=== PATIENT | male | born 1970 | race Caucasian/White ===

== ENCOUNTER 2023-10-31 18:47 | Inpatient (IN) | payer OTHER, SELFPAY ==
[2023-10-31] VITALS (14 sets, daily range): BP systolic 117–142; BP diastolic 78–89; BMI 21.2; BMI 17.3
[2023-10-31 13:31] LABS: % Basophils 0.4 % (0-2); % Eosinophils 0.2 % (0-6); % Immature Granulocytes 1.6 % (0-0.5); % Lymphocytes 9.5 % (20.5-51.1); % Neutrophils 79.3 % (42.2-75.2); Absolute Immature Granulocytes 0.1 10^3/uL (0-0.05); Absolute Lymphocytes 0.8 10^3/uL (1.2-3.4); Absolute Monocytes 0.8 10^3/uL (0.1-0.6); Absolute Neutrophils 6.6 10^3/uL (1.4-6.5); Hemoglobin 7.3 g/dL (13.0-18.0); Mean Corp Hgb Conc. 35.4 g/dL (33.0-37.0); Mean Corpuscular Hgb 34.3 pg (27.0-31.0); Mean Corpuscular Volume 96.7 fL (80.0-94.0); Mean Platelet Volume 9.4 fL (7.4-10.4); Nucleated Red Blood Cells % 0 % (-); Platelet Count 116 10^3/uL (130-400); Red Blood Cell Count 2.13 10^6/uL (4.70-6.10); Red Cell Dist. Width 11.6 % (11.5-14.5); White Blood Cell Count 8.3 10^3/uL (4.8-10.8)
[2023-10-31 13:38] LABS: Hematocrit 20.6 % (39.0-52.0)
[2023-10-31 13:59] LABS: ALT (SGPT) 36 U/L (0-50); AST (SGOT) 193 U/L (17-59); Albumin 4.5 g/dl (3.5-5.0); Alkaline Phosphatase 113 U/L (38-126); Blood Urea Nitrogen 55 mg/dl (9-20); Calcium 8.4 mg/dl (8.4-10.2); Carbon Dioxide 16 mmol/L (22-30); Chloride 97 mmol/L (98-107); Glucose 127 mg/dl (70-99); Lipase 495 U/L (23-300); Potassium 4.2 mmol/L (3.5-5.1); Sodium 132 mmol/L (135-145); Total Bilirubin 0.8 mg/dl (0.2-1.3); Total Protein 7.2 g/dl (6.3-8.2); eGFR 38.93
--- NOTE | 2023-10-31 16:52 | ED.GENMED ---
History of Present Illness
General
Chief Complaint: Weakness
Time Seen by Provider: 10/31/23 16:51
Travel History
Have you had any contact with someone who has COVID-19?: No
Do you have any symptoms of coronavirus? Fever > 100 degrees, chills, cough, shortness of breath, sore throat, loss of taste or smell, muscle aches, or headache?: No
History of Present Illness
History of Present Illness:
HPI: The patient has had poor p.o. intake since dental procedure 5 days ago. There was also concern for alcohol withdrawal. He was drank alcohol yesterday morning. He is a daily drinker. After the dental procedure, he had been having increased
amount of oral bleeding but none currently. He also tells me that about a year and a half ago he was told to start taking iron because his hemoglobin level was low. He has not been taking any iron now.
EXAM:
GENERAL: The patient is somewhat ill in appearance
HEENT: Dry oral mucosa
CARDIOVASCULAR: No murmurs, tachycardic heart rate, regular rhythm, No chest wall tenderness
PULMONARY: No respiratory distress, breath sounds are clear and equal
ABDOMEN: Soft with no peritoneal signs, no tenderness
NEUROLOGIC: Good strength all extremities, no coordination deficits, asterixis noted
PSYCHIATRIC: Appropriate mental status, normal insight and judgement, CIWA score equals 12
EXTREMITIES: Nontender, no edema, moves all extremities equally
SKIN: No rash, no lesions
TIME OF INITIAL ENCOUNTER: 5 PM
NUMBER AND COMPLEXITY OF PROBLEMS ADDRESSED AT THE ENCOUNTER
� Chronic conditions affecting care: Alcoholism, high blood pressure, hyperlipidemia, GERD, testicular cancer
� Acute Exacerbation and/or Progression of Chronic Illness: This is an acute problem
� Differential Diagnosis includes: Blood loss anemia, B12/folate deficiency, upper GI bleed, alcohol withdrawal
AMOUNT AND/OR COMPLEXITY OF DATA TO BE REVIEWED AND ANALYZED
� I performed an independent evaluation of and my interpretation is:
EKG: Sinus 112, leftward axis, nonspecific ST abnormality, no old to compare
CT:
X-rays:
Laboratory Studies: Hemoglobin is only 7.3, bicarb 16, BUN 55, creatinine 2.0
Other:
� Review of other/old records: I reviewed old records, the hemoglobin in 2009 was 13.0, renal function in the past was normal
� Clinical information was obtained by an independent historian: I spoke to the at bedside
� Prescriptions/Medications Considered but not given:
� Further testing considered but not performed:
RISK OF COMPLICATIONS AND/OR MORBIDITY OR MORTALITY OF PATIENT MANAGEMENT
� Social determinants of health affecting care: Lives at home, drinks daily until yesterday morning
� Discussion with other providers:
� Escalation of care including admission/observation vs risk of discharge considered: The patient is an alcoholic and currently has a CIWA score of 12�Ativan was ordered. There is also concern for dramatic drop in his
hemoglobin�will give blood. I have also ordered Protonix. He has briskly heme positive on Hemoccult testing. He does report some intermittent shortness of breath with exertion which I suspect is related to the blood loss anemia.
Phy Exam
Physical Exam
Physical Exam:
See HPI
Course
Orders/Labs/Results
Orders:
Orders
10/31/23 13:12
Electrocardiogram (*1) Urgent
Reason for Study: Tachycardia
EKG- Treatment ONCE
10/31/23 13:24
Complete Blood Count/With Diff Urgent
Comprehensive Metabolic Panel Urgent
Ferritin Urgent
Comment: ADD ON
Folate Urgent
Comment: ADD ON
Iron Urgent
Comment: ADD ON
Lipase Urgent
Total Iron Binding Urgent
Comment: ADD ON
Vitamin B12 Urgent
Comment: ADD ON
10/31/23 16:53
0.9% Sodium Chloride 1000 ml [Nss] 1,000 ml IV BOLUS
Lorazepam [Ativan] 2 mg IV NOW STA
Pantoprazole [Protonix IV] 80 mg IV NOW STA
10/31/23 16:59
Type+Screen Urgent
10/31/23 17:04
Add On- LAB Urgent
Tests Added?: iron panel, ferritin, b12, folate
10/31/23 17:06
* Blood Bank Products Urgent
Blood Bank Products: *Packed RBC Leuko(PRBC's)
Quantity: 2
Transfuse Today: Yes
Reason: Anemia
10/31/23 17:16
Prothrombin Time Urgent
Abnormal Lab Results
10/31/23
13:24
RBC 2.13 L 10^6/uL
(4.70-6.10)
Hgb 7.3 L g/dL
(13.0-18.0)
Hct 20.6 L* %
(39.0-52.0)
MCV 96.7 H fL
(80.0-94.0)
MCH 34.3 H pg
(27.0-31.0)
Plt Count 116 L 10^3/uL
(130-400)
Abs Immat Gran (auto) 0.1 H 10^3/uL
(0-0.05)
Absolute Neuts (auto) 6.6 H 10^3/uL
(1.4-6.5)
Absolute Lymphs (auto) 0.8 L 10^3/uL
(1.2-3.4)
Absolute Monos (auto) 0.8 H 10^3/uL
(0.1-0.6)
Immature Gran % 1.6 H %
(0-0.5)
Neutrophils % 79.3 H %
(42.2-75.2)
Lymphocytes % 9.5 L %
(20.5-51.1)
Sodium 132 L mmol/L
(135-145)
Chloride 97 L mmol/L
(98-107)
Carbon Dioxide 16 L mmol/L
(22-30)
BUN 55 H mg/dl
(9-20)
Creatinine 2.0 H mg/dL
(0.7-1.3)
Glucose 127 H mg/dl
(70-99)
AST 193 H U/L
(17-59)
Lipase 495 H U/L
(23-300)
10/31/23 13:24
10/31/23 13:24
Vital Signs
Initial and Last Documented VS:
Initial Vital Signs
Temp Pulse Resp BP Pulse Ox
98.1 F 125 18 117/81 100
10/31/23 13:08 10/31/23 13:08 10/31/23 13:08 10/31/23 13:08 10/31/23 13:08
Last Documented Vital Signs
Temp Pulse Resp BP Pulse Ox
98.1 F 115 21 133/88 100
10/31/23 13:08 10/31/23 16:51 10/31/23 16:51 10/31/23 16:53 10/31/23 16:51
*Critical Care Note
Total Time (30-74mins, 75-104mins- exclusive of procedures): Not Applicable
ED Attending Note
-
Portions of this chart may have been created with voice recognition software.� Occasional wrong word or��sound alike� substitutions may have occurred due to the inherent limitations of voice recognition software.
Discharge Plan
Departure
Patient Disposition: Admit
Date of Disposition: 10/31/23
Time of Disposition: 17:05
Presentation/result/management discussed w/ accepting MD/DO: Hospitalist
Discharge Problem:
Symptomatic anemia
Prescriptions:
No Action
amlodipine 5 mg Tablet
5 mg PO QPM
Patient Comments:
10/31/2023, last filled in February 2023 for 30-day supply per pharmacy.
simvastatin 40 mg Tablet
40 mg PO QPM
Patient Comments:
10/31/2023, last filled in March 2023 for 30-day supply per pharmacy.
pantoprazole 40 mg Tablet,Delayed Release (Dr/Ec)
40 mg PO QPM
Patient Comments:
10/31/2023, last filled in March 2023 for 30-day supply per pharmacy.
losartan 100 mg Tablet
100 mg PO QPM
Patient Comments:
10/31/2023, last filled in April 2023 for a 30-day supply per pharmacy.
Interventions
Interventions:
*Risk Screen - Suicide Last Done: 10/31/23 13:08
*General Assessment Last Done: 10/31/23 13:08
*Neglect/Abuse Screening Last Done: 10/31/23 13:08
*ED COVID-19 Vaccine History Last Done: 10/31/23 13:08
ED- Cardiac Assessment Last Done: 10/31/23 16:54
ED- Neurological Assessment Last Done: 10/31/23 17:28
Discharge Date and Time
Print Language: QATARI
[2023-10-31] MEDS: PROTONIX IV 80 MG IV (17:00)
[2023-10-31] MEDS: NSS 1000 IV (17:00)
[2023-10-31] MEDS: ATIVAN 2 MG IV (17:06)
--- NOTE | 2023-10-31 17:34 | PHANOTE ---
10/31/2023, med rec tech, spoke to pt. to obtain their med. history; per pt., he is taking Pantoprazole 40 mg QPM, Amlodipine 5 mg QPM, Simvastatin 40 mg QPM, and Losartan 100 mg QPM; however, per pharmacy, he has not filled them since last year for
30-day supplies each. Could not confirm with ECW.
[2023-10-31 17:51] LABS: Iron 123 ug/dl (49-181)
--- NOTE | 2023-10-31 17:59 | HPS.HSE ---
Family Physician
-
Family Physician: Josselin Fung
Chief Complaint
-
Weakness
History of Present Illness
Patient is a 53 y/o male with a past medical history of hypertension, hyperlipidemia, and alcohol use disorder who presents for dental bleeding, anorexia, and progressive lethargy with dyspnea on exertion for about 1 week. He reports that he got a
right-sided dental cleaning last week and has had continuous bleeding with clots since that time. He admits to 'constantly spitting out clots' but states that he is probably swallowing some blood as well. He is not on any blood-thinning medications.
He denies any bleeding since arrival to the emergency department. His family member reports a similar episode of dental bleeding in the past. Additionally, he drinks about 7 drinks of liquor daily and stopped drinking yesterday morning. Since that
time, he has been experiencing shakiness and vomited 1 time yesterday. He admits to previous episodes of alcohol withdrawal but denies history of seizures.
Medical History
Past Medical History
Past Medical History: Reports Other
Additional Past Medical History:
Essential Hypertension
Hyperlipidemia
Alcohol Use Disorder
GERD
Testicular Cancer
Past Surgical History: Reports Other
Additional Past Surgical History:
Orchiectomy
Social History
Tobacco: Non-smoker
Alcohol: Daily (7 drinks of vodka/bourbon daily )
Family History
Family History: Not pertinent
Allergies / Home Medications
Allergies reflects when Allergies were last updated in [facility].
Home Medications with original date entered in [facility]
Allergy/Medication List:
Allergies
Allergy/AdvReac Type Severity Reaction Status Date / Time
No Known Allergies Allergy Unverified 10/31/23 13:12
Home Medications
amlodipine 5 mg tablet 5 mg PO QPM 10/31/23
losartan 100 mg tablet 100 mg PO QPM 10/31/23
pantoprazole 40 mg tablet,delayed release 40 mg PO QPM 10/31/23
simvastatin 40 mg tablet 40 mg PO QPM 10/31/23
Review of Systems
-
A 12 point ROS was completed and negative except as noted: Yes
Constitutional: Denies Fever or Chills
Respiratory: Denies Cough or Trouble Breathing
Cardiac: Denies Chest Pain or Syncope
Abdomen/GI: Reports Anorexia
Physical Exam
Vital Signs
Vital Signs
Temp Pulse Resp BP Pulse Ox
98.1 F 115 21 133/88 100
10/31/23 13:08 10/31/23 16:51 10/31/23 16:51 10/31/23 16:53 10/31/23 16:51
Physical Exam
General: Comfortable and Conversant
HEENT: Anicteric, Moist mucous membranes and Other (Blood pooling along lower right posterior molars)
Respiratory: Clear and Non Labored Respirations
Cardiac: S1/S2, Regular Rhythm and Tachycardia
GI: Soft, Non Tender and Other (Mild hepatomegaly )
Rectal: Hem Positive (Per ED Provider)
Musculoskeletal: No Clubbing, No Cyanosis and No Edema
Skin: Warm and Dry
Neuro: Awake, Alert, Oriented, Nonfocal/grossly intact and Tremors (Slightly)
Laboratory Results
-
10/31/23 13:24
10/31/23 13:24
Laboratory Results
Total Bilirubin 0.8 mg/dl (0.2-1.3) 10/31/23 13:24
AST 193 U/L (17-59) H 10/31/23 13:24
ALT 36 U/L (0-50) 10/31/23 13:24
Alkaline Phosphatase 113 U/L (38-126) 10/31/23 13:24
Lipase 495 U/L (23-300) H 10/31/23 13:24
Data Reviewed
-
Lab Data: Labs Reviewed by me
Impression/Plan
-
Symptomatic Acute Blood Loss Anemia
-Transfuse 2 units PRBC
-Check iron studies, vitamin b12 and folic acid level
Heme-Positive Stool, suspect secondary to Gingival Bleeding following dental procedure
-Consult GI
-Continue Protonix
Acute Kidney Injury
-Continue IVFs
-Recheck creatinine in AM
Thrombocytopenia, likely related to alcohol
-Continue to monitor platelet count
Essential Hypertension
-Unclear if patient is taking medication as prescribed
-Hold losartan in setting of GATO
-Continue amlodipine with hold parameters
-Monitor blood pressure closely
Hyperlipidemia
-Hold statin
GERD
-Continue Protonix
DVT proph: SCDs
Code Status: Full Code
[2023-10-31 18:01] LABS: Percent Saturation 54 % (20-50); Total Iron Binding Capacity 224 ug/dl (261-462)
--- NOTE | 2023-10-31 18:53 | W.PN.UPDATE ---
Update Note
Progress Note Update
This note serves as an addendum to the H&P by Marjorie Sage PA-C on October 31, 2023.
53 y/o male with a past medical history of hypertension, hyperlipidemia, bleeding in mouth after dental work and alcohol use disorder (with history of driving while intoxicated) who presents for dental bleeding, anorexia, and progressive lethargy
with dyspnea on exertion for about 1 week. He reported that he got a right-sided dental cleaning last week and has had continuous bleeding with clots since that time -- he has a history of a similar episode after dental work, without any clear
etiology identified. He admits to 'constantly spitting out clots' but states that he is probably swallowing some blood as well. He is not on any blood-thinning medications. He denies any bleeding since arrival to the emergency department.
Additionally, he drinks about 7 drinks of liquor daily and stopped drinking yesterday morning. Since that time, he has been experiencing shakiness and vomited 1 time yesterday. He admits to previous episodes of alcohol withdrawal but denies history
of seizures. Patient also reported Melena this morning.
Vital Signs
Afebrile
Tachycardic
BP good/elevated
RR okay
Oxygen saturations are good on room air
Physical Exam
General: Comfortable and Conversant
HEENT: Moist mucous membranes and Other (Blood pooling along lower right posterior molars)
Respiratory: Clear to Auscultation Bilaterally
Cardiac: S1/S2, Regular Rhythm. Tachycardia.
GI: Soft, Non Tender and Other (Mild hepatomegaly). Positive bowel sounds.
Rectal: Hem Positive (Per ED Provider)
Musculoskeletal: No Cyanosis and No Edema
Skin: Warm and Dry
Neuro: Awake, Alert, Oriented x3, Nonfocal/grossly intact and Tremors (Slightly)
Assessment/Plan
Symptomatic Acute Blood Loss Anemia
Melena
-Transfuse 2 units PRBC as ordered by ER
-Check iron studies, vitamin b12 and folic acid level
-Bleeding contributed from oral bleeding
-GI consult
Heme-Positive Stool, suspect secondary to Gingival Bleeding following dental procedure
-Consult GI
-Continue Protonix
Acute Kidney Injury
-Continue IVFs
-Recheck creatinine in AM
Thrombocytopenia, likely related to alcohol
-Continue to monitor platelet count
Alcohol Use Disorder
-Continue monitoring with MSAS protocol and can use PRN Ativan as needed
-Phenobarb taper can be considered if needed
Essential Hypertension
-Unclear if patient is taking medication as prescribed
-Hold losartan in setting of GATO
-Continue amlodipine with hold parameters
-Monitor blood pressure closely
Hyperlipidemia
-Hold statin
GERD
-Continue Protonix
DVT prophylaxis: SCDs
Code Status: Full Code
[2023-10-31 19:19] LABS: Folate 3.9 ng/ml (2.76-20); Vitamin B12 765 pg/ml (239-931)
--- NOTE | 2023-10-31 22:15 | PTCARENOTE ---
Pt received from ED to 4417-1. Pt oriented to room and call elizalde.
[2023-10-31] MEDS: NORVASC 5 MG PO (23:10)
[2023-11-01] VITALS (10 sets, daily range): BP systolic 111–141; BP diastolic 83–93; BMI 18.9
[2023-11-01] MEDS: THIAMINE INJECTION 200 MG IV ×3 (01:13→22:10)
[2023-11-01] MEDS: NSS 1000 IV ×2 (01:14→18:29)
--- NOTE | 2023-11-01 07:48 | W.PN.HOSP.TC ---
Today's Communication/Plan
-
Alcohol withdrawal monitoring
NPO for EGD
Monitor telemetry
PPI
Replace electrolytes
Assessment / Plan
Assessment / Plan
Physical Exam
General: Comfortable and Conversant
HEENT: Moist mucous membranes and Other (Blood pooling along lower right posterior molars)
Respiratory: Clear to Auscultation Bilaterally
Cardiac: S1/S2, Regular Rhythm. Tachycardia.
GI: Soft, Non Tender and Other (Mild hepatomegaly). Positive bowel sounds.
Rectal: Heme-Positive (Per ED Provider)
Musculoskeletal: No Cyanosis and No Edema
Skin: Warm and Dry
Neuro: Awake, Alert, Oriented x3, Nonfocal/grossly intact and Tremors (Slightly)
Assessment/Plan
Symptomatic Acute Blood Loss Anemia
Melena
-Transfused 2 units PRBC on 10/31/23 evening
-Iron studies unremarkable
-Vitamin b12 and folic acid levels are okay
-Bleeding contributed from oral bleeding
-GI consulted, recommendations appreciated
-NPO for EGD
-Abdominal ultrasound to check for ascites
SVT on residential monitor
-Possibly from alcohol withdrawal, anemia, volume depletion, acute kidney injury
-Cardiology consulted, recommendations appreciated
Heme-Positive Stool, suspect secondary to Gingival Bleeding following dental procedure
-Consulted GI, recommendations appreciated
-Continue Protonix Drip
Acute Kidney Injury vs. CKD
Hypomagnesemia
Hypocalcemia
-Continue IVFs
-Blood transfusion may have contributed to the above electrolyte imbalances
-REeplacing with IV magnesium
-Consulted nephrology, recommendations appreciated
Thrombocytopenia, likely related to alcohol
-Continue to monitor platelet count
Alcohol Use Disorder
-Continue monitoring with MSAS protocol and can use PRN Ativan as needed
-Phenobarb taper can be considered if needed
-Thiamine and Folic Acid
Essential Hypertension
-Unclear if patient is taking medication as prescribed
-Hold losartan in setting of GATO
-Continue amlodipine with hold parameters
-Monitor blood pressure closely
Hyperlipidemia
-Hold statin
GERD
-Continue Protonix
DVT prophylaxis: SCDs
Code Status: Full Code
Anticipated Discharge: > 48 hours
Subjective/Interval History
-
Date of Service: November 01, 2023
Patient was seen and examined. He reported no bowel movements overnight, and had no bleeding in his mouth overnight.
Objective Data
-
Labs:
Laboratory Results
10/31/23 11/01/23
19:53 07:23
WBC Pending
Hgb Pending
Hct Pending
Plt Count Pending
PT 14.0
INR 1.10
Sodium Pending
Potassium Pending
Chloride Pending
Carbon Dioxide Pending
BUN Pending
Creatinine Pending
Glucose Pending
Calcium Pending
Vital Signs:
Vital Signs
Temp Pulse Resp BP Pulse Ox
99 F 122 18 136/93 99
11/01/23 04:45 11/01/23 04:45 11/01/23 04:45 11/01/23 04:45 11/01/23 04:45
I&O
10/31/23 11/01/23 11/02/23
06:59 06:59 06:59
Intake Total 900 / 900
Output Total 575 / 575
Balance 325 / 325
[2023-11-01 07:49] LABS: Mean Corpuscular Hgb 32.4 pg (27.0-31.0); Mean Corpuscular Volume 89.9 fL (80.0-94.0); Mean Platelet Volume 10.2 fL (7.4-10.4); Platelet Count 105 10^3/uL (130-400); Red Blood Cell Count 2.78 10^6/uL (4.70-6.10); Red Cell Dist. Width 14.3 % (11.5-14.5)
--- NOTE | 2023-11-01 08:16 | CON.GI ---
Addendum entered and electronically signed by Sheyla Pardo DO 11/01/23 10:32:
53 y.o. male w/ history of HTN, HLD, GERD, testicular ca in 1999, alcohol use disorder admitted with weakness, SOB and reports of melenic stool x1 week. He reports having a dental procedure last week, after which he started experiencing melena.
Initial hemoglobin of 7.3 with improvement to 9.0 following blood transfusion. BUN initially 55 with improvement to 38, creatinine was elevated to 2.0 with improvement to 1.5. Additionally, has evidence of thrombocytopenia, 116 --> 105. INR is
normal. He also has mild hyponatremia, Na 133. He has an isolated elevation in AST to 193, c/w EtOH. He reports drinking 7 alcoholic beverages daily-- either vodka or bourban for many years. Denies NSAID use or blood thinners. He is mildly
tachycardic but otherwise hemodynamically stable. Admits to withdrawal symptoms but denies history of seizures. Noted to be in SVT following admission, cardiology consult pending.
Given active EtoH, elevated BUN, significant anemia with melenic stool and thrombocytopenia, c/f upper GI bleed and liver disease.
Plan:
-Keep NPO, cardiology consult pending. Plan for EGD following clearance
-keep on PPI gtt, can hold on Octreotide and SBP prophylaxis pending workup, no appreciable ascites on PE
-Check abdominal US w/ dopplers, if evidence of ascites, needs IR for paracentesis and ascitic fluid studies
-check hepatitis serologies, acetaminophen level, salicylate level, UDS, ceruloplasmin
-DF = 0.8, no role for steroids
-replete electrolytes, low mag
-start thiamine and folic acid
-check phos
-elevated lipase without abdominal pain, does not meet criteria for acute pancreatitis, though, certainly has RFs
Addendum entered and electronically signed by Mellisa Bridges NP 11/01/23 09:05:
Lipase is also mildly elevated but he denies abdominal pain. Await US.
Original Note:
Consultation
-
Date/Time Consultation Requested: 11/01/23 @ 07:33
Date/Time Consultation Performed: 11/01/23 @ 08:30
Requesting Provider: Dr. Rosas
Performing Provider: FRANKI Conde; Dr. Sheyla Pardo
Reason for Consultation: Melena, got blood transfusions
Medical History
Chief Complaint / HPI
Chief Complaint: weakness
History of Present Illness:
The patient is a 53-year-old male with a past medical history significant for hypertension, GERD, hiatal hernia, hyperlipidemia, ETOH abuse, testicular cancer (1999), who presented to the emergency room with complaints of weakness and shortness of
breath. We are being asked to evaluate for evaluation of melena. The pt reports having a dental procedure about a week ago. He notes significant bleeding from his mouth post-procedure which also happened a few years ago after a deep cleaning. He
notes he likely was swallowing blood and was spitting up clots. He admits his stools turned black shortly after his procedure which has been ongoing for a week. He denies any hematemesis or hematochezia. He will get occasional rectal bleeding from
hemorrhoids. He has had progressive fatigue and shortness of breath as well. He admits to occasional nausea with one episode of non-bloody emesis on Tuesday, but currently denies. He admits he has had reduced PO intake over the past week as well. He
otherwise denies any abdominal pain, abdominal swelling, LE edema, chest pain, dysphagia, odynophagia, fevers, chills, confusion, or yellowing of the skin or eyes. He reports a history of 'low blood counts' several years ago and was told to take
oral iron but he did not continue this. He did not have any further work-up of this. He denies hx of liver cirrhosis, hepatitis, or IV drug use. He drinks 7 drinks of vodka or bourbon daily which he done for many years. He admits to history of DUI
but has never been to formal alcohol rehab. He has gone through mild alcohol withdrawal in the past without seizures. His last drink was Tuesday morning. He denies use of blood thinners or NSAID's. He denies any family hx of GI cancers or disorders.
He has never had a colonoscopy but did a 'box test' about 2-3 years ago which was negative. Last EGD done in 2013 which was normal. Routine labs on admission showed a hemoglobin of 7.3, WBC 8.3, MCV 96.7, platelets 116,000, INR 1.1, sodium 132,
potassium 4.2, total CO2 16, BUN 55, creatinine 2.0, serum iron 123, there is saturation 54%, ferritin 239, lipase 495, total bilirubin 0.8, AST 193, ALT 36, alk phos 113, vitamin B12 765, folate 3.9. He recieved Protonix 80 mg IV, started on
alcohol withdrawal protocol, and admitted for further evaluation by GI and cardiology. It is noted the patient had a run of SVT this morning. He did receive 2 units of packed red blood cells with improvement of his hemoglobin to 9.0. Noted with
mild tachycardia otherwise hemodynamically stable.
Past Medical History
Past Medical History: Cancer (Testicular cancer), GERD, HTN, Hypercholesterolemia and Other (EtOH abuse, hiatal hernia)
Past Surgical History: Urological (Orchiectomy) and Other (finger surgery)
Social History
Tobacco: Non-Smoker
Alcohol: Daily (7 drinks of vodka or bourbon daily)
Drug: None
Family History
Family History: Reviewed & Not Pertinent
Allergies / Home Medications
Allergy/AdvReac Type Severity Reaction Status Date / Time
No Known Allergies Allergy Unverified 10/31/23 13:12
�Medication �Instructions �Recorded
amlodipine 5 mg tablet 5 mg PO QPM Blood Pressure 10/31/23
losartan 100 mg tablet 100 mg PO QPM Blood Pressure 10/31/23
pantoprazole 40 mg tablet,delayed 40 mg PO QPM Gastrointestinal Issue 10/31/23
release
simvastatin 40 mg tablet 40 mg PO QPM High Cholesterol 10/31/23
Review of Systems
-
History Source: Patient
Constitutional: Reports Fatigue
EENT: Reports Other (gum bleeding)
Respiratory: Reports Trouble Breathing
Cardiac: Reports No Symptoms
Abdomen/GI: Reports Black Stools
: Reports No Symptoms
Musculoskeletal: Reports No Symptoms
Skin: Reports No Symptoms
Neurological: Reports Weakness (generalized)
Vital Signs
Temp Pulse Resp BP Pulse Ox
99.2 F 102 16 131/88 96
11/01/23 08:02 11/01/23 08:02 11/01/23 08:02 11/01/23 08:02 11/01/23 08:02
Physical Exam
Exam
General: Well Developed, Well Nourished and No Apparent Distress
HEENT: Normocephalic, Anicteric and Atraumatic
Respiratory: Clear
Cardiac: S1/S2 and Regular Rhythm
Breast: Deferred by me
GI: Soft, Non Tender, Non Distended and Normal Bowel Sounds
Rectal: Other (black, briskly heme positive per ER)
Musculoskeletal: No Edema and Other (mild UE tremors bilaterally, no asterixis)
Skin: Warm and Dry
Neuro: Awake, Alert and Oriented
Psych: Calm
Results
WBC 7.0 10^3/uL (4.8-10.8) 11/01/23 07:23
Hgb 9.0 g/dL (13.0-18.0) L D 11/01/23 07:23
Hct 25.0 % (39.0-52.0) L 11/01/23 07:23
MCV 89.9 fL (80.0-94.0) 11/01/23 07:23
Plt Count 105 10^3/uL (130-400) L 11/01/23 07:23
Absolute Neuts (auto) 6.6 10^3/uL (1.4-6.5) H 10/31/23 13:24
PT 14.0 Sec (11.4-14.6) 10/31/23 19:53
INR 1.10 10/31/23 19:53
Sodium 132 mmol/L (135-145) L 10/31/23 13:24
Potassium 4.2 mmol/L (3.5-5.1) 10/31/23 13:24
Chloride 97 mmol/L (98-107) L 10/31/23 13:24
Carbon Dioxide 16 mmol/L (22-30) L 10/31/23 13:24
BUN 55 mg/dl (9-20) H 10/31/23 13:24
Creatinine 2.0 mg/dL (0.7-1.3) H 10/31/23 13:24
Calcium 8.4 mg/dl (8.4-10.2) 10/31/23 13:24
Total Bilirubin 0.8 mg/dl (0.2-1.3) 10/31/23 13:24
AST 193 U/L (17-59) H 10/31/23 13:24
ALT 36 U/L (0-50) 10/31/23 13:24
Alkaline Phosphatase 113 U/L (38-126) 10/31/23 13:24
Lipase 495 U/L (23-300) H 10/31/23 13:24
Diagnostic Image Results:
none
Prior GI Procedures:
EGD: 06/24/2014, Dr. Eng: Normal esophagus. Biopsied. Normal stomach. Biopsied. Normal 3rd part of the duodenum. Biopsied. GERD, diagnosis based on history. UGI suggested stricture none found. Path showing chronic gastritis, esophageal
inflammation, negative for celiac, cadena's esophagus, H pylori
Colonoscopy: none
Assessment / Plan
-
The patient is a 53-year-old male with a past medical history significant for hypertension, GERD, hiatal hernia, hyperlipidemia, daily ETOH abuse, testicular cancer s/p surgery (1999), who presented to the emergency room with complaints of weakness
and shortness of breath and melena found to have significant macrocytic anemia with normal iron studies. With daily alcohol use, thrombocytopenia, and significant anemia there is concern for possible underlying cirrhosis although appears he would be
clinically compensated. No ongoing signs of bleeding to suggest active esophageal variceal bleeding. He reports recent dental work and significant bleeding from this which has stopped. He reports hx of anemia but did not have underlying work-up. No
prior colonoscopy. EGD 10 years ago which was normal. No NSAID's or thinners.
Problem list:
-melena, heme +
-macrocytic anemia
-recent dental procedure with bleeding post-procedure
-daily ETOH abuse
-GATO
-elevated AST
-thrombocytopenia
-SVT
Other pertinent medical hx:
-HTN
-HLD
-GERD
-hiatal hernia
-testicular cancer with surgery(1999)
Recommendations:
-Etiology of melena possibly 2/2 bleeding from dental procedure v UGI bleed (PUD v AVM v erosive gastritis v other) v other. With hx of alcohol abuse to consider portal hypertensive gastropathy v EV in differential although with no known hx of
cirrhosis and without signs of active bleeding.
-Trend H/H and transfuse to keep hgb >7
-Monitor stool output
-Consider EGD today v tomorrow as discussed with Dr. Pardo. Await cardiology eval with SVT this am
-Will make NPO at this time pending above. The pt is agreeable to this plan.
-Check US abdomen with dopplers to evaluate for cirrhosis
-Trend LFT's
-Advised to abstain from alcohol
-Avoid blood thinning medications
-Avoid NSAID's
-Follow platelets
-Would change PPI to IV BID
-Will follow
-
-
Thank you for consultation and allowing me to participate in the patient's care. Please call the composition weatherboard applier GI physician during the after hours with any questions or concerns.
[2023-11-01 08:28] LABS: Blood Urea Nitrogen 38 mg/dl (9-20); Calcium 7.8 mg/dl (8.4-10.2); Carbon Dioxide 20 mmol/L (22-30); Chloride 101 mmol/L (98-107); Estimated Creatinine Clearance 43 ml/min; Glucose 102 mg/dl (70-99); Magnesium 0.6 mg/dl (1.6-2.3); Potassium 3.7 mmol/L (3.5-5.1); Sodium 133 mmol/L (135-145); eGFR 54.98
[2023-11-01] MEDS: MAGNESIUM SULFATE 50 IV (10:34)
[2023-11-01] MEDS: PROTONIX 100 IV (10:34)
[2023-11-01] MEDS: FOLVITE 1 MG PO (10:34)
--- NOTE | 2023-11-01 11:13 | CON.CAR ---
Addendum entered and electronically signed by Chalino Mir MD 11/01/23 16:02:
53-year-old man with hypertension, hyperlipidemia, GERD, and EtOH use disorder admitted with dyspnea, anorexia, lethargy, and hemoglobin 7.3. We are asked to comment regarding sinus tachycardia/possible SVT.
PMH: Hypertension, hyperlipidemia, alcohol use disorder, GERD, history of testicular cancer, and anemia
PSH: Orchiectomy, hand surgery
SH: Non-smoker, 7 vodka/bourbons daily, , not employed,
FH: Premature CAD
Allergies none
Outpatient medications: Amlodipine, losartan, pantoprazole and simvastatin
ROS negative except as above
134/92, pulse 106, respirate 16, afebrile
Seen in PACU after EGD, appears chronically ill, no acute distress, head neck exam unremarkable, lungs are clear cardiac exam with very soft systolic murmur at apex JVD okay no bruits, abdomen mildly distended, extremities without edema pulses
intact, neuro nonfocal
Initial hemoglobin 7.3, 9.0 on repeat, platelets 105, sodium 133, BUN and creatinine 38 and 1.5, mag is 0.6, creatinine had been 2
ECG sinus tachycardia, nonspecific ST and T changes, QT top normal
Telemetry sinus tach, periods of possible atrial tachycardia/SVT based on review of histograms, difficult to be certain without twelve-lead ECG
Impression:
Presented 10/31/2023 with weakness, lethargy, anorexia
Gingival bleeding after dental procedure, thrombocytopenia
Dyspnea on exertion
Symptomatic Acute Blood Loss Anemia
Melena with heme + stool
Acute Kidney Injury
Thrombocytopenia, likely related to alcohol abuse
Essential Hypertension
Hyperlipidemia
Alcohol Use Disorder (drinks 7 liquor drinks daily)
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
GERD
Mitral valve prolapse?
Testicular Cancer s/p Orchiectomy
Plan:
He presents with blood loss anemia in the setting of alcohol use disorder and sinus tachycardia. On telemetry he may be having episodes of SVT or atrial tach, though it is also conceivable he has sinus tachycardia.
Nothing at present that seems like atrial fibrillation.
Suspect all will improve with transfusion, appropriate management of alcohol withdrawal, etc.
Suspect LV function will be normal but await echo. 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
Await echocardiogram. In the meantime, I have added metoprolol ER 25 mg twice daily. Continue amlodipine. Losartan on hold given GATO, eventual restart.
We will continue to follow.
Original Note:
Consultation
Consultation Request
Date/Time Consultation Requested: 11/01/2023
Date/Time Consultation Performed: 11/01/2023
Requesting Provider: Alison Sheldon
Performing Provider: Barbara Zepeda PA-C for Dr. WILL Mir
Reason for Consultation: Tachycardia
Medical History
-
History of Present Illness:
53 y/o male with a past medical history of hypertension, hyperlipidemia, GERD and alcohol use disorder who presented 10/31/2023 for dental bleeding, anorexia, and progressive lethargy with dyspnea on exertion for about 1 week. Patient admits he had
dental procedure last week and has had continuous gingival bleeding with clots since that time. He had a similar episode in the past. He reports progressively worsening dyspnea on exertion and elevated heart rate with activity over the last
several days. Admits to history of alcohol abuse with drinking 7 drinks of liquor primarily vodka and bourbon a day for years. Patient stopped drinking yesterday morning. Since that time he has not been experiencing shakiness as well as nausea
and vomiting. Initial hemoglobin of 7.3 with improvement to 9.0 following blood transfusion w/ 2 upRBCs. BUN initially 55 with improvement to 38, creatinine was elevated to 2.0 with improvement to 1.5. He has an isolated elevation in AST to 193,
ALT 36 ECG demonstrated sinus tachycardia at 111 bpm.
He reports he saw cardiology 1 time in the past after he was told he may have mitral valve prolapse. He thinks he had an echocardiogram and a stress test. He does not recall the name of the cardiology Avel Gallardo but he thinks it was in the [place]
or [facility].
PMH:
Essential Hypertension
Hyperlipidemia
Alcohol Use Disorder
GERD
Testicular Cancer
Chronic Anemia
Past Medical History
Past Medical History: Other (See HPI)
Past Surgical History: Orthopedic (Surgery on pinky finger after injury) and Urological (Orchiectomy)
Social History
Tobacco: Non-Smoker
Alcohol: Daily (7 drinks of vodka/bourbon daily)
Drug: None
Personal:
Living: With Family
Employment: Not Employed (between jobs)
Family History
Family History: Early CAD (dad of [place] at 52) and Hypertension (mother)
Allergies / Home Medications
Allergy/AdvReac Type Severity Reaction Status Date / Time
No Known Allergies Allergy Unverified 10/31/23 13:12
�Medication �Instructions �Recorded �Confirmed �Type
amlodipine 5 mg tablet 5 mg PO QPM Blood Pressure 10/31/23 History
losartan 100 mg tablet 100 mg PO QPM Blood Pressure 10/31/23 History
pantoprazole 40 mg tablet,delayed 40 mg PO QPM Gastrointestinal Issue 10/31/23 History
release
simvastatin 40 mg tablet 40 mg PO QPM High Cholesterol 10/31/23 History
Review of Systems
-
History Source: Patient
All other systems: Negative unless noted
Physical Exam
Vital Signs
Temp Pulse Resp BP Pulse Ox
99.2 F 102 16 131/88 96
11/01/23 08:02 11/01/23 08:02 11/01/23 08:02 11/01/23 08:02 11/01/23 08:02
GEN: No distress, awake, Ox3
HEENT: supple, anicteric, mmm
LUNGS: CTA, no wheezes/rales
CV: Reg but tachycardic, S1/S2, 1/6 syst LSB, no murmur
ABD: soft, BS+, NT/ND
EXT: No edema, clubbing or cyanosis
NEURO: Gross non-focal
SKIN: No rash, warm, dry
Lab Results
11/01/23 07:23
11/01/23 07:23
Impression / Plan
-
Family Physician: Josselin Fung
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 Initial consult WILL Mir
Impression:
Presented 10/31/2023 with weakness, lethargy, anorexia
Gingival bleeding after dental procedure
Dyspnea on exertion
Symptomatic Acute Blood Loss Anemia
Melena with heme + stool
Acute Kidney Injury
Thrombocytopenia, likely related to alcohol abuse
Essential Hypertension
Hyperlipidemia
Alcohol Use Disorder (drinks 7 liquor drinks daily)
GERD
Mitral valve prolapse?
Testicular Cancer s/p Orchiectomy
Plan:
-Presented 10/31/2023 with weakness, anorexia, dyspnea on exertion, tachycardia
Acute blood loss anemia
-initial hemoglobin 7.3 after having ongoing oral bleeding following dental procedure approximately 1 week ago.
-Patient received 2 units packed RBCs with improvement of hemoglobin to 9.0
-With melena and heme positive stool. Now on PPI drip
-GI consulted and recommending EGD
Tachycardia
-EKG showed sinus tachycardia on admission.
-Per review of telemetry evidence of ongoing sinus tachycardia with possible SVT
-Most likely secondary to ongoing volume depletion/GATO from anemia, electrolyte derangement and withdrawal from alcohol
-Consider initiating beta-chriss in place of losartan. Hopefully heart rate will improve with repletion of electrolytes, volume.
-Consider giving ativan to see if HR improves as patient has potential of with drawl from alcohol
-Would check echocardiogram
GATO
-Initial creatinine 2.0, improved to 1.5 with blood transfusion and IV fluids
-Continue to monitor and trend closely
Hypertension
-Takes amlodipine and losartan as outpatient.
-Blood pressure stable and elevated at times
-Continue amlodipine
-Consider adding Toprol 25 mg for blood pressure and heart rate control
-Hold losartan given GATO.
History of chronic alcohol use
-Drinks 7 drinks of liquor primarily vodka and bourbon daily for many years
-Check echocardiogram to rule out alcohol induced cardiomyopathy
-Correct electrolytes
-MSAS protocol
-Consider urine drug screen. Denies drug use
HPI 11/01/23:
53 y/o male with a past medical history of hypertension, hyperlipidemia, GERD and alcohol use disorder who presented 10/31/2023 for dental bleeding, anorexia, and progressive lethargy with dyspnea on exertion for about 1 week. Patient admits he had
dental procedure last week and has had continuous gingival bleeding with clots since that time. He had a similar episode in the past. He reports progressively worsening dyspnea on exertion and elevated heart rate over the last several days.
Admits to history of alcohol abuse with drinking 7 drinks of liquor primarily vodka and bourbon a day for years. Patient stopped drinking yesterday morning. Since that time he has not been experiencing shakiness as well as nausea and vomiting.
Initial hemoglobin of 7.3 with improvement to 9.0 following blood transfusion w/ 2 upRBCs. BUN initially 55 with improvement to 38, creatinine was elevated to 2.0 with improvement to 1.5. He has an isolated elevation in AST to 193, ALT 36 ECG
demonstrated sinus tachycardia at 111 bpm.
He reports he saw cardiology 1 time in the past after he was told he may have mitral valve prolapse. He thinks he had an echocardiogram and a stress test. He does not recall the name of the cardiology Avel Gallardo but he thinks it was in the [place]
or [facility] area.
[2023-11-01 13:09] LABS: Acetaminophen < 10 ug/ml (10-30); Salicylate < 1.0 mg/dl (2.0-20.0)
[2023-11-01 13:43] LABS: Hepatitis B Surface Antigen Negative (Negative)
[2023-11-01] MEDS: TOPROL XL 25 MG PO ×2 (13:43→22:11)
[2023-11-01 13:49] LABS: Hepatitis A IgM Antibody Negative (Negative)
[2023-11-01 14:01] LABS: Hepatitis B Core Ab, Total Reactive (Negative); Hepatitis C Antibody Negative (Negative)
[2023-11-01 15:11] LABS: Hepatitis B Surface Antibody Negative
[2023-11-01 15:19] LABS: Hepatitis A Antibody, Total Negative (Negative)
--- NOTE | 2023-11-01 16:00 | PTCARENOTE ---
Rec'd Pt back from GI Lab. Report taken by Carolann EWING and relayed to this nurse. Pt re-oriented to room with call elizalde in place.
[2023-11-01 16:26] LABS: Hematocrit 24.9 % (39.0-52.0); Hemoglobin 8.9 g/dL (13.0-18.0)
[2023-11-01 16:54] LABS: NT-proBNP 893 pg/ml; Troponin I 0.038 ng/ml
--- NOTE | 2023-11-01 16:57 | W.CON.NEPH ---
Consultation
-
Date/Time Consultation Requested: November 01, 2023 p.m.
Date/Time Consultation Performed: November 01, 2023 5 PM
Requesting Provider: Dr. Rosas
Performing Provider: Dr. Jara
Reason for Consultation: Acute kidney injury, hypomagnesemia
Medical History
-
Chief Complaint: Acute kidney injury
History of Present Illness:
This is a 53-year-old gentleman who has significant alcohol abuse disorder who drinks a lot of vodka as well as bourbon each day. He has done this for at least 5 or 7 years by his report. Recently he did stop drinking. He does have hypertension
on a multidrug regimen as well as hyperlipidemia on statin therapy. He has not seen his primary care physician in a year and a half and he had stopped refilling his pills though he had a surplus from either missing doses previously or having extra
refills from his pharmacy. He has therefore been taking his medications as previously prescribed. On Tuesday last week he had undergone a deep cleaning dental procedure unfortunately his teeth continue to bleed quite heavily easily until the
following Tuesday. During that timeframe his appetite had gotten worse because of the significant bleeding and his oral intake was essentially 0 with the exception of the alcohol and Gatorade. He then began getting weaker and weaker as well as
developing some lightheadedness and orthostasis. Ultimately came to the emergency room for evaluation he was admitted. His creatinine was noted to be elevated at 2.2 represent acute kidney injury. He had a magnesium level of 0.9. His hemoglobin
was 7.3. He underwent EGD today.
Past Medical History
Hypertension, hyperlipidemia, alcohol use disorder, GERD, testicular cancer, orchiectomy
Social History
Tobacco: Non-Smoker
Alcohol: Chronic Alcoholic
Family History
No known CKD
Allergies / Home Medications
Allergy/AdvReac Type Severity Reaction Status Date / Time
No Known Allergies Allergy Unverified 10/31/23 13:12
�Medication �Instructions �Recorded �Confirmed �Type
amlodipine 5 mg tablet 5 mg PO QPM Blood Pressure 10/31/23 History
losartan 100 mg tablet 100 mg PO QPM Blood Pressure 10/31/23 History
pantoprazole 40 mg tablet,delayed 40 mg PO QPM Gastrointestinal Issue 10/31/23 History
release
simvastatin 40 mg tablet 40 mg PO QPM High Cholesterol 10/31/23 History
Review of Systems
-
No chest pain or shortness of breath. Appetite remains depressed. No issues with urine output. The remainder of the complete review of systems was negative
Physical Exam
Vital Signs
Vital Signs
Temp Pulse Resp BP Pulse Ox
98.8 F 100 16 127/92 98
11/01/23 16:28 11/01/23 16:28 11/01/23 16:28 11/01/23 16:28 11/01/23 16:28
Lab Results
WBC 7.0 10^3/uL (4.8-10.8) 11/01/23 07:23
RBC 2.78 10^6/uL (4.70-6.10) L 11/01/23 07:23
Hgb 8.9 g/dL (13.0-18.0) L 11/01/23 16:14
Hct 24.9 % (39.0-52.0) L 11/01/23 16:14
Plt Count 105 10^3/uL (130-400) L 11/01/23 07:23
Sodium 133 mmol/L (135-145) L 11/01/23 07:23
Potassium 3.7 mmol/L (3.5-5.1) 11/01/23 07:23
Chloride 101 mmol/L (98-107) 11/01/23 07:23
Carbon Dioxide 20 mmol/L (22-30) L 11/01/23 07:23
BUN 38 mg/dl (9-20) H 11/01/23 07:23
Creatinine 1.5 mg/dL (0.7-1.3) H 11/01/23 07:23
eGFR 54.98 11/01/23 07:23
Glucose 102 mg/dl (70-99) H 11/01/23 07:23
Calcium 7.8 mg/dl (8.4-10.2) L 11/01/23 07:23
Xhq-L-Fizocimzniu Pept 893 pg/ml 11/01/23 16:14
Albumin 4.5 g/dl (3.5-5.0) 10/31/23 13:24
Physical Exam
Patient is awake alert oriented and in no distress. Mood and affect were pleasant, insight and judgment were good. Pupils are equal round and reactive to light, extraocular movements are intact, sclera were anicteric. Hearing was normal, ears and
nose are intact. Oropharynx was clear. Neck was supple with trachea midline and no thyromegaly. Heart was regular rate and rhythm without rubs. Lower extremities without edema. Lungs were clear to auscultation bilaterally and with normal
excursion. Abdomen was soft, nontender, with normal active bowel sounds, and no hepatosplenomegaly. Skin was without rash and with normal turgor.
Data Reviewed
-
Medical Tests (Nuc Med, Echo etc): Image Personally Visualized and interpreted (EKG on 10/31/2023 by my read shows sinus tachycardia nonspecific ST-T wave changes)
Labs: Labs Reviewed by me (Creatinine 1.5, potassium 3.7, sodium 133, bicarbonate 20, calcium 7.8, magnesium 0.6, hemoglobin 8.9)
Old Records: Requested (From primary care physician about 2 years previous)
Assessment/Plan
-
Assessment:
Alcoholism
Acute kidney injury
hypotension
Acute anemia
Hypomagnesemia hypocalcemia
Metabolic acidosis
Plan:
Magnesium will be replaced aggressively. Additional IV riders
Oral calcium ordered by primary team will continue
Follow basic metabolic panel
IV fluids will be continued for the time being.
Acute kidney injury is a result of prerenal hypotension
Check urine studies
I discussed with the patient regarding his alcohol abuse which needs to stop
Discussed with family at bedside
[2023-11-01] MEDS: TUMS 1 TABLET PO ×2 (18:06→22:14)
[2023-11-01] MEDS: NORVASC 5 MG PO (18:06)
[2023-11-01] MEDS: MAGNESIUM SULFATE 100 IV (18:06)
[2023-11-01 18:25] LABS: Urine Albumin Negative (Neg - Trace); Urine Bilirubin Negative (Negative); Urine Character Clear (Clear); Urine Color Yellow; Urine Glucose Negative (Negative); Urine Ketone 1+ (Negative); Urine Leukocyte Negative (Negative); Urine Nitrite Negative (Negative); Urine Occult Blood Negative (Negative); Urine Urobilinogen Negative (Neg - 1+)
[2023-11-01 18:44] LABS: Amphetamines Negative (Negative); Barbiturates Negative (Negative); Benzodiazepines Positive (Negative); Buprenorphine Negative (Negative); Cocaine Negative (Negative); Marijuana Negative (Negative); Methadone Negative (Negative); Methamphetamines Negative (Negative); Opiates Negative (Negative); Phencyclidine Negative (Negative); Tricyclic Antidepressants Negative (Negative)
[2023-11-01 18:52] LABS: Urine Sodium 92 mmol/L (30-90)
[2023-11-01 19:10] LABS: Fentanyl, Urine Negative (Negative)
--- NOTE | 2023-11-01 19:36 | FALL ---
Description of Fall:
Pt is AAOx3- taken to the bathroom by AVNI Dunbar and instructed to use call elizalde for assistance. was with him. Pt did not use elizalde, attempted to walk from sink to door and became weak. Pt was lowered to ground onto his buttocks with assistance
of .
Injuries Noted:
None. No new orders rec'd. Vital signs taken and WNL.
Action Taken:
Bed alarm placed. Pt educated on importance of using call elizalde for assistance. Fall risk bracelet and magnet placed.
Name of Provider Notified: Alison
[2023-11-02] MEDS: TUMS 1 TABLET PO ×2 (03:08→09:27)
[2023-11-02 03:16] VITALS: BP 127/88
[2023-11-02 06:00] VITALS: BMI 20.9
[2023-11-02] MEDS: NSS 1000 IV (06:01)
[2023-11-02 06:19] LABS: Hematocrit 23.4 % (39.0-52.0); Hemoglobin 8.4 g/dL (13.0-18.0); Mean Corp Hgb Conc. 35.9 g/dL (33.0-37.0); Mean Corpuscular Hgb 32.3 pg (27.0-31.0); Mean Platelet Volume 9.4 fL (7.4-10.4); Platelet Count 125 10^3/uL (130-400); Red Cell Dist. Width 13.7 % (11.5-14.5); White Blood Cell Count 4.7 10^3/uL (4.8-10.8)
[2023-11-02 06:53] LABS: Blood Urea Nitrogen 22 mg/dl (9-20); Calcium 7.5 mg/dl (8.4-10.2); Carbon Dioxide 17 mmol/L (22-30); Chloride 100 mmol/L (98-107); Estimated Creatinine Clearance 60 ml/min; Glucose 106 mg/dl (70-99); Phosphorus 2.6 mg/dl (2.5-4.5); Potassium 3.6 mmol/L (3.5-5.1); Sodium 133 mmol/L (135-145); eGFR > 60.00
--- NOTE | 2023-11-02 07:44 | W.PN.GI.CBS2 ---
Today's Communication / Plan
-
Blood in oropharynx see in EGD, recommend ENT evaluation. Unclear if this accounts for source of anemia, recommend inpatient colonoscopy tomorrow. Patient reluctant to remain in hospital, will let me know what he decides by early afternoon so that
we can begin prep. Hepatitis B Core Ab positive, needs additional serologies.
Assessment / Plan
-
The patient is a 53-year-old male with a past medical history significant for hypertension, GERD, hiatal hernia, hyperlipidemia, daily ETOH abuse, testicular cancer s/p surgery (1999), who presented to the emergency room with complaints of weakness
and shortness of breath and melena in the setting of alcohol use disorder and recent dental procedure.
Melena
-initial hgb on arrival was 7.3 --> 9.0 s/p 2 units of PRBC
-EGD with small blood clot in upper esophagus and some oozing from the oropharynx, unclear if this could represent etiology of bleeding
-recommend ENT eval
-PPI gtt d/c'ed, continue on daily PPI for now as unclear source
-Hemoglobin stable this morning at 8.4 from 8.9, BUN improving as well as GATO
-recommend colonoscopy tomorrow, as I cannot be sure that blood loss is solely from oropharynx in setting of recent dental procedure. I offered colonoscopy tomorrow, patient will let me know later this morning if he is agreeable. If not, will need
this arranged as an outpatient, as long as deemed stable otherwise to be discharged. He is no longer having melena, I do not feel he is actively bleeding at this time.
Elevated Liver Enzymes- 2/2 alcohol use disorder c/b thrombocytopenia
-isolated elevation in AST-- no repeat LFTs this morning? Will repeat with next set of labs
-acute hepatitis panel negative; neg. HAV Ab IgG, negative HBsAb, +HBCAb Total
-Lipase elevated to 495- no abdominal pain, does not meet criteria for acute pancreatitis
-acetaminophen, salicylate levels undetectable; ceruloplasmin pending
-US w/ dopplers show patent vasculature, no cirrhosis but severe steatosis
-recommend outpatient follow-up for additional serologic workup as well as for elastography
-discussed need for alcohol cessation, at high risk for progression to ESLD as well as increase risk for HCC
Positive Hep B Core Ab Total
-Will repeat, in addition to IgM
-HBsAg negative, -->not consistent with chronic hepatitis B
-HBsAb negative --> lacks immunity, typically with prior exposure, this should be positive, which may indicate recent infection
-will repeat at this time with additional serologies
CRC screening
-unclear if prior noninvasive stool testing performed
-overdue for colorectal cancer screening
Needs outpatient follow with GI upon discharge, will arrange for our office to reach out to [facility] to see him for ongoing management of his liver disease.
Subjective
Subjective
Date of Service: November 02, 2023
Patient is status post EGD yesterday, 1 small blood clot was found in the upper esophagus as well as some oozing noted in his oropharynx, seem to be stemming from the incisors. Multiple gastric polyps, appeared hyperplastic in nature, not biopsied.
Erythematous mucosa in the antrum, biopsied. Normal duodenal bulb. Congested duodenal mucosa in the second portion of duodenum which was biopsied. Unfortunately, procedure note did not make it into patient's chart. Given the small blood clot
found in the upper esophagus and oozing from the oropharynx. I recommend ENT evaluation to further evaluate as possible bleeding source.
Hgb stable this morning 8.4, from 8.9. Discussed with patient performing a colonoscopy tomorrow, as I am not sure I can account for such profound blood loss solely from his oropharynx, without more of a worrisome presentation, such as hematemasis.
Patient requested time to think about it this morning-- is concerned about his bills and prolonged hospitalization. He will let me know his decision later this afternoon.
Objective
Data Reviewed
Laboratory Data:
Laboratory Results
11/02/23 05:48
11/02/23 05:48
Laboratory Results
PT 14.0 Sec (11.4-14.6) 10/31/23 19:53
INR 1.10 10/31/23 19:53
Phosphorus 2.6 mg/dl (2.5-4.5) 11/02/23 05:48
Magnesium 2.0 mg/dl (1.6-2.3) 11/02/23 05:48
Total Bilirubin 0.8 mg/dl (0.2-1.3) 10/31/23 13:24
AST 193 U/L (17-59) H 10/31/23 13:24
ALT 36 U/L (0-50) 10/31/23 13:24
Alkaline Phosphatase 113 U/L (38-126) 10/31/23 13:24
Lipase 495 U/L (23-300) H 10/31/23 13:24
Vital Signs and I&O:
Vital Signs
Temp Pulse Resp BP Pulse Ox
98.2 F 93 16 127/88 98
11/02/23 03:16 11/02/23 03:16 11/02/23 03:16 11/02/23 03:16 11/01/23 23:10
I&O
11/01/23 11/02/23 11/03/23
06:59 06:59 06:59
Intake Total 900 / 900 700 / 700
Output Total 575 / 575 1950 / 1950
Balance 325 / 325 -1250 / -1250
Physical Exam
Physical Exam
HEENT: Anicteric, Moist mucous membranes and Other (poor dentition)
Cardiology: S1, S2 and Other (tachycardic)
Pulmonary: Clear
GI: Soft, Non Distended and Normal Bowel Sounds
Extremities: No Edema
Neuro: Non Focal
[2023-11-02 07:58] VITALS: BP 143/90
[2023-11-02] MEDS: FOLVITE 1 MG PO (09:22)
[2023-11-02] MEDS: THIAMINE INJECTION 200 MG IV ×2 (09:22→20:36)
[2023-11-02] MEDS: FLUSH (NSS) 1 FLUSH IV (09:26)
[2023-11-02] MEDS: PROTONIX 40 MG PO (09:26)
[2023-11-02] MEDS: TOPROL XL 25 MG PO ×2 (09:26→20:36)
[2023-11-02 10:49] LABS: ALT (SGPT) 27 U/L (0-50); AST (SGOT) 108 U/L (17-59); Albumin 4.1 g/dl (3.5-5.0); Alkaline Phosphatase 103 U/L (38-126); Direct Bilirubin 0.5 mg/dl (0.0-0.4); Total Bilirubin 0.7 mg/dl (0.2-1.3); Total Protein 6.7 g/dl (6.3-8.2)
--- NOTE | 2023-11-02 11:04 | W.PN.CARDCBS ---
Today's Communication / Plan
-
Tele shows sinus tachycardia likely multifactorial. No evidence of arrhythmia.
Echo pending.
Cont Metoprolol and amlodipine.
Losartan held with renal insufficiency. Nephrology following. Cr improved with IVF.
Cont tx for alcohol withdrawal. Cessation is a must.
Monitor H/H s/p transfusion.
GI eval. endoscopy noted.
Reviewed with family at bedside.
Please recall if needed.
Impression / Plan
-
.
Family Physician: Josselin Fung
Delivery And Installation Subcontractor: Saw cardiology once in years ago in [facility], does not recall name. Initial consult WILL Mir
Impression:
Presented 10/31/2023 with weakness, lethargy, anorexia
Symptomatic Acute Blood Loss Anemia /Gingival bleeding after dental procedure
Melena with heme + stool
Acute Kidney Injury
Thrombocytopenia, likely related to alcohol abuse
Essential Hypertension
Hyperlipidemia
Alcohol Use Disorder (drinks 7 liquor drinks daily)
GERD
Mitral valve prolapse
Testicular Cancer s/p Orchiectomy
Plan:
-Presented 10/31/2023 with weakness, anorexia, dyspnea on exertion, tachycardia
Tele shows sinus tachycardia likely multifactorial. No evidence of arrhythmia.
Echo pending.
Cont Metoprolol and amlodipine.
Losartan held with renal insufficiency. Nephrology following. Cr improved with IVF.
Cont tx for alcohol withdrawal. Cessation is a must.
Monitor H/H s/p transfusion.
GI eval. endoscopy noted. GI recommending ENT eval.
Reviewed with family at bedside.
Please recall if needed.
HPI 11/01/23:
53 y/o male with a past medical history of hypertension, hyperlipidemia, GERD and alcohol use disorder who presented 10/31/2023 for dental bleeding, anorexia, and progressive lethargy with dyspnea on exertion for about 1 week. Patient admits he had
dental procedure last week and has had continuous gingival bleeding with clots since that time. He had a similar episode in the past. He reports progressively worsening dyspnea on exertion and elevated heart rate over the last several days.
Admits to history of alcohol abuse with drinking 7 drinks of liquor primarily vodka and bourbon a day for years. Patient stopped drinking yesterday morning. Since that time he has not been experiencing shakiness as well as nausea and vomiting.
Initial hemoglobin of 7.3 with improvement to 9.0 following blood transfusion w/ 2 upRBCs. BUN initially 55 with improvement to 38, creatinine was elevated to 2.0 with improvement to 1.5. He has an isolated elevation in AST to 193, ALT 36 ECG
demonstrated sinus tachycardia at 111 bpm.
He reports he saw cardiology 1 time in the past after he was told he may have mitral valve prolapse. He thinks he had an echocardiogram and a stress test. He does not recall the name of the cardiology Avel Gallardo but he thinks it was in the [place]
or [facility] area.
Progress Note - Delivery And Installation Subcontractor
Subjective
Date of Service: November 02, 2023
Pt seen and examined. No complaints. No chest pain or shortness of breath.
Objective
Labs:
11/02/23 05:48
11/02/23 05:48
Labs
Hgb 8.4 g/dL (13.0-18.0) L 11/02/23 05:48
Hct 23.4 % (39.0-52.0) L 11/02/23 05:48
Plt Count 125 10^3/uL (130-400) L 11/02/23 05:48
PT 14.0 Sec (11.4-14.6) 10/31/23 19:53
INR 1.10 10/31/23 19:53
Sodium 133 mmol/L (135-145) L 11/02/23 05:48
Potassium 3.6 mmol/L (3.5-5.1) 11/02/23 05:48
BUN 22 mg/dl (9-20) H 11/02/23 05:48
Creatinine 1.2 mg/dL (0.7-1.3) 11/02/23 05:48
Glucose 106 mg/dl (70-99) H 11/02/23 05:48
Troponins
11/01/23
16:14
Troponin I 0.038 H*
Vital Signs and I&O:
Vital Signs
Temp Pulse Resp BP Pulse Ox
98.9 F 108 16 143/90 99
11/02/23 07:58 11/02/23 07:58 11/02/23 07:58 11/02/23 07:58 11/02/23 07:58
Vital Signs
Temp Pulse Resp BP Pulse Ox
98.9 F 108 16 143/90 99
11/02/23 07:58 11/02/23 07:58 11/02/23 07:58 11/02/23 07:58 11/02/23 07:58
Intake & Output
10/31/23 11/01/23 11/02/23 11/03/23
06:59 06:59 06:59 06:59
Intake Total 900 / 900 700 / 700
Output Total 575 / 575 1950 / 1950
Balance 325 / 325 -1250 / -1250
Physical Exam
Physical Exam
General: No acute distress, AAOX3
Neck: Negative JVD
Heart: Regular, Negative S3 positive S1/S2, Negative S4, No murmur
Lungs: CTA b/l, negative wheezes/rales/rhonchi
Abd: Positive BS, NT/ND, neg rebound/rigidity/guarding
Ext: Negative cyanosis/clubbing/edema
Neuro: nonfocal
--- NOTE | 2023-11-02 11:52 | W.PN.NEPH.PH ---
Today's Communication / Plan
-
Sign off
Assessment/Plan
-
Assessment:
Alcoholism
Acute kidney injury
hypotension
Acute anemia
Hypomagnesemia hypocalcemia
Metabolic acidosis
Plan:
Electrolytes including sodium magnesium stable
Oral calcium ordered by primary team will continue
Acute kidney injury is a result of prerenal hypotension, now resolving
Check urine studies: UA bland
Will sign off
-
-
Date of Service: November 02, 2023
CC / HPI / ROS
-
Chief Complaint:
Acute kidney injury
Hyponatremia
Hypomagnesemia
Hypocalcemia
History of Present Illness:
GATO resolving
Electrolytes corrected
Hemodynamically stable
Review of Systems:
Grossly nonoliguric
No fevers
Labs
-
Labs:
WBC 4.7 10^3/uL (4.8-10.8) L 11/02/23 05:48
RBC 2.60 10^6/uL (4.70-6.10) L 11/02/23 05:48
Hgb 8.4 g/dL (13.0-18.0) L 11/02/23 05:48
Hct 23.4 % (39.0-52.0) L 11/02/23 05:48
Plt Count 125 10^3/uL (130-400) L 11/02/23 05:48
Sodium 133 mmol/L (135-145) L 11/02/23 05:48
Potassium 3.6 mmol/L (3.5-5.1) 11/02/23 05:48
Chloride 100 mmol/L (98-107) 11/02/23 05:48
Carbon Dioxide 17 mmol/L (22-30) L 11/02/23 05:48
BUN 22 mg/dl (9-20) H 11/02/23 05:48
Creatinine 1.2 mg/dL (0.7-1.3) 11/02/23 05:48
eGFR > 60.00 11/02/23 05:48
Glucose 106 mg/dl (70-99) H 11/02/23 05:48
Calcium 7.5 mg/dl (8.4-10.2) L 11/02/23 05:48
Phosphorus 2.6 mg/dl (2.5-4.5) 11/02/23 05:48
Wut-Q-Uykfveffzmj Pept 893 pg/ml 11/01/23 16:14
Albumin 4.1 g/dl (3.5-5.0) 11/02/23 10:09
Physical Exam
-
Vital Signs:
Vital Signs
Temp Pulse Resp BP Pulse Ox
98.9 F 108 16 143/90 99
11/02/23 07:58 11/02/23 07:58 11/02/23 07:58 11/02/23 07:58 11/02/23 07:58
Cardiovascular:: Regular rate and rhythm
Respiratory:: Bilateral: CTA
Lung Excursion:: Normal
Abdomen:: Nontender
Bowel Sounds:: Normal
Extremity Edema:: None: Bilateral:
Anthony Catheter: No
[2023-11-02 11:59] VITALS: BP 137/86
--- NOTE | 2023-11-02 12:30 | CM ---
Patient seen bedside, initial assessment completed. Patient reports he lives with his in a two story home, one step to enter. Patient denies DME, VN, or SNF. Patient confirms PCP Josselin Obrien, [facility], unsure if he has
prescription coverage. Patient denies food insecurities. CM discussed consult for substance use services, offered [facility], patient declined. CM will continue to follow for discharge planning needs and offer support if patient interested.
Plans; home no needs, declining [facility].
[2023-11-02 16:11] VITALS: BP 127/88
[2023-11-02 16:46] LABS: Body Fluid for Eosinophils NO EOS SEEN
[2023-11-02] MEDS: GAVILAX 238 GM PO (16:49)
[2023-11-02] MEDS: NORVASC 5 MG PO (16:52)
[2023-11-02] MEDS: DULCOLAX 10 MG PO (16:52)
--- NOTE | 2023-11-02 19:09 | W.PN.HOSP.TC ---
Today's Communication/Plan
-
Colonoscopy tomorrow
Morning labs
Assessment / Plan
Assessment / Plan
Physical Exam
General: Comfortable and Conversant
HEENT: Moist mucous membranes and Other (Blood pooling along lower right posterior molars)
Respiratory: Clear to Auscultation Bilaterally
Cardiac: S1/S2, Regular Rhythm. Tachycardia.
GI: Soft, Non Tender and Other (Mild hepatomegaly). Positive bowel sounds.
Musculoskeletal: No Cyanosis and No Edema
Skin: Warm and Dry
Neuro: Awake, Alert, Oriented x3, Nonfocal/grossly intact
Assessment/Plan
Symptomatic Acute Blood Loss Anemia
Melena
Blood in Oropharynx
One small blood clot in the upper third of the esophagus.
Multiple gastric polyps.
Erythematous mucosa in the antrum.
Normal duodenal bulb.
Congested duodenal mucosa.
-Transfused 2 units PRBC on 10/31/23 evening
-Iron studies unremarkable
-Vitamin b12 and folic acid levels are okay
-Bleeding contributed from oral bleeding
-GI consulted, recommendations appreciated
-EGD findings above
-Colonoscopy tomorrow
-Abdominal ultrasound to check for ascites
-Clear Liquid Diet
-Switch PPI to once daily, stop PPI drip
-Plan to consult ENT for oropharyngeal evaluation for source of bleeding.
SVT on monitoring manager
-Possibly from alcohol withdrawal, anemia, volume depletion, acute kidney injury
-Cardiology consulted, recommendations appreciated
-Cont Metoprolol
Heme-Positive Stool, suspect secondary to Gingival Bleeding following dental procedure
-Consulted GI, recommendations appreciated
-Endoscopy today
-Colonoscopy tomorrow
Transaminitis
Positive Hep B Core Ab Total
+HBCAb Total noted
-Labs as ordered by GI
Acute Kidney Injury - likely from prerenal hypotension
Hypomagnesemia
Hypocalcemia
-Continue IVFs
-Blood transfusion may have contributed to the above electrolyte imbalances
-Replacing with IV magnesium
-Consulted nephrology, recommendations appreciated
-Continue PO calcium
-Hold Losartan
Thrombocytopenia, likely related to alcohol
-Continue to monitor platelet count
Alcohol Use Disorder
-Continue monitoring with MSAS protocol and can use PRN Ativan as needed
-Phenobarb taper can be considered if needed
-Thiamine and Folic Acid
Essential Hypertension
-Unclear if patient is taking medication as prescribed
-Hold losartan in setting of GATO
-Continue amlodipine with hold parameters
-Monitor blood pressure closely
Hyperlipidemia
-Hold statin
GERD
-Continue Protonix
DVT prophylaxis: SCDs
Code Status: Full Code
Anticipated Discharge: 24 - 48 hours
Subjective/Interval History
-
Date of Service: November 02, 2023
Patient was seen and examined. He denied any new symptoms, dizziness, chest pain, shortness of breath or any other complaints this morning.
Objective Data
-
Labs:
Laboratory Results
11/02/23
10:09
Total Bilirubin 0.7
AST 108 H
ALT 27
Alkaline Phosphatase 103
Vital Signs:
Vital Signs
Temp Pulse Resp BP Pulse Ox
97.8 F 98 16 127/88 96
11/02/23 16:11 11/02/23 16:11 11/02/23 16:11 11/02/23 16:11 11/02/23 16:11
I&O
11/01/23 11/02/23 11/03/23
06:59 06:59 06:59
Intake Total 900 / 900 700 / 700 960 / 960
Output Total 575 / 575 1950 / 1950 650 / 650
Balance 325 / 325 -1250 / -1250 310 / 310
[2023-11-02 19:19] VITALS: BP 108/76
[2023-11-02] MEDS: OSCAL 500 + D 1000 MG PO (20:36)
[2023-11-02 22:17] LABS: Ceruloplasmin 21 mg/dL (15-30)
[2023-11-02 22:54] VITALS: BP 131/82
[2023-11-03] VITALS (11 sets, daily range): BP systolic 12–143; BP diastolic 72–90; BMI 20.6
[2023-11-03] MEDS: THIAMINE INJECTION 200 MG IV (07:39)
[2023-11-03] MEDS: PROTONIX 40 MG PO (07:41)
[2023-11-03] MEDS: TOPROL XL 25 MG PO ×2 (07:41→19:48)
[2023-11-03] MEDS: FLUSH (NSS) 1 FLUSH IV (07:42)
[2023-11-03 08:29] LABS: Hematocrit 26.5 % (39.0-52.0); Hemoglobin 9.5 g/dL (13.0-18.0); Mean Corp Hgb Conc. 35.8 g/dL (33.0-37.0); Mean Corpuscular Hgb 32.6 pg (27.0-31.0); Mean Corpuscular Volume 91.1 fL (80.0-94.0); Mean Platelet Volume 9.4 fL (7.4-10.4); Platelet Count 242 10^3/uL (130-400); Red Blood Cell Count 2.91 10^6/uL (4.70-6.10); Red Cell Dist. Width 13.7 % (11.5-14.5); White Blood Cell Count 9.3 10^3/uL (4.8-10.8)
--- NOTE | 2023-11-03 08:56 | CON.ONC ---
Impression
Impression
Atypical bleeding post minor down procedure
Symptomatic anemia
Thrombocytopenia
Splenomegaly
MASH
EtOH abuse
Hypertension
Plan
Plan
No ability to test for platelet function as an inpatient
Thrombocytopenia resolved
PTT
Von Willebrand's assay
Aminocaproic acid 50mg/kg swish and spit q6 hrs as needed for recurrent bleeding
No evidence of iron deficiency
Hemoglobin improving
Follow CBC
Patient History
History of Present Illness
Patient is a 53 y/o male with a past medical history of hypertension, hyperlipidemia, and alcohol use disorder who presented for dental bleeding, anorexia, and progressive lethargy with dyspnea on exertion for about 1 week. He reports that he got a
right-sided dental cleaning last week and has had continuous bleeding with clots since that time. He admits to 'constantly spitting out clots' but states that he is probably swallowing some blood as well. He is not on any blood-thinning medications.
He denies any bleeding since arrival to the emergency department. His family member reports a similar episode of dental bleeding in the past. Additionally, he drinks about 7 drinks of liquor daily and stopped drinking yesterday morning. Since that
time, he has been experiencing shakiness and vomited 1 time yesterday. He admits to previous episodes of alcohol withdrawal but denies history of seizures.
Past-Medical/Surgical History
Past Medical History
Essential Hypertension
Hyperlipidemia
Alcohol Use Disorder
GERD
Testicular Cancer
Past Surgical History
Orchiectomy
Social History
Tobacco: Non-smoker
Alcohol: Daily (7 drinks of vodka/bourbon daily )
Family History
Family History: Not pertinent
Allergies / Home Medications
Patient Medication
�Medication �Instructions �Recorded �Confirmed �Last Taken �Type
amlodipine 5 mg tablet 5 mg PO QPM Blood Pressure 10/31/23 11/02/23 10/29/23 History
losartan 100 mg tablet 100 mg PO QPM Blood Pressure 10/31/23 11/02/23 10/29/23 History
pantoprazole 40 mg tablet,delayed 40 mg PO QPM Gastrointestinal Issue 10/31/23 11/02/23 10/29/23 History
release
simvastatin 40 mg tablet 40 mg PO QPM High Cholesterol 10/31/23 11/02/23 10/29/23 History
Active Medications
Generic Name Dose Route Start Last Admin
Trade Name Freq PRN Reason Stop Dose Admin
Acetaminophen 650 mg 10/31/23 22:15
Acetaminophen 325 Mg Tablet PO 11/28/23 22:14
Q4HPRN PRN
mild pain/ fever>100.5F
Amlodipine Besylate 5 mg 10/31/23 22:15 11/02/23 16:52
Amlodipine 5 Mg Tablet PO 11/28/23 22:14 5 mg
QPM LIBBY Administration
Calcium/Vitamin D 1,000 mg 11/02/23 20:00 11/02/23 20:36
Calcium Carbonate 500 Mg/Vitamin D 5 Mcg (200 Units) Tablet PO 11/30/23 19:59 1,000 mg
BID LIBBY Administration
Folic Acid 1 mg 11/01/23 08:00 11/02/23 09:22
Folic Acid 1 Mg Tablet PO 11/29/23 07:59 1 mg
DAILY LIBBY Administration
Folic Acid 1 mg/ Sodium 50.2 mls @ 200.8 mls/hr 10/31/23 22:15
Chloride IV 11/28/23 22:14
DAILYPRN PRN
if NPO
Lorazepam 1 mg 10/31/23 22:15
Lorazepam 1 Mg Tablet PO 11/28/23 22:14
Q2HPRN PRN
MSAS 5-7
Lorazepam 1 mg 10/31/23 22:15
Lorazepam 2 Mg/Ml Vial IV 11/28/23 22:14
Q1HPRN PRN
MSAS 8-11
Lorazepam 2 mg 10/31/23 22:15
Lorazepam 2 Mg/Ml Vial IV 11/28/23 22:14
Q1HPRN PRN
MSAS > 11
Metoprolol Succinate 25 mg 11/01/23 20:00 11/03/23 07:41
Metoprolol 25 Mg Extended Release Tablet PO 11/29/23 19:59 25 mg
BID LIBBY Administration
Pantoprazole Sodium 40 mg 11/02/23 08:00 11/03/23 07:41
Pantoprazole 40 Mg Delayed Release Tablet PO 11/30/23 07:59 40 mg
DAILY LIBBY Administration
Sodium Chloride 0 ml 10/31/23 22:15
Sodium Chloride 0.9% (Preservative Free) 10 Ml Vial IV 11/28/23 22:14
PRN PRN
To dilute IV Ativan
Protocol
Sodium Chloride 0 flush 10/31/23 23:00 11/03/23 07:42
Sodium Chloride 0.9% (Flush) Syringe IV 11/28/23 22:59 1 flush
PER PROTOCOL LIBBY Administration
Thiamine HCl 100 mg 11/03/23 20:00
Thiamine 100 Mg Tablet PO 12/01/23 19:59
BID LIBBY
Review of Systems
-
12 point review of systems fails to elicit additional complaints
Physical Exam
-
Physical Exam
General: Comfortable and Conversant seen in endoscopy suite
HEENT: Anicteric, Moist mucous membranes small amount of caked blood on the lower lip- no active bleeding
Respiratory: Clear and Non Labored Respirations
Cardiac: S1/S2, Regular Rhythm and Tachycardia
GI: Soft, Non Tender and Other (Mild hepatomegaly )
Rectal: Hem Positive (Per ED Provider)
Musculoskeletal: No Clubbing, No Cyanosis and No Edema
Skin: Warm and Dry
Neuro: Awake, Alert, Oriented, Nonfocal/grossly intact and Tremors (Slightly)
Labs
Lab Results
WBC 9.3 10^3/uL (4.8-10.8) 11/03/23 07:09
RBC 2.91 10^6/uL (4.70-6.10) L 11/03/23 07:09
Hgb 9.5 g/dL (13.0-18.0) L 11/03/23 07:09
Hct 26.5 % (39.0-52.0) L 11/03/23 07:09
MCV 91.1 fL (80.0-94.0) 11/03/23 07:09
MCH 32.6 pg (27.0-31.0) H 11/03/23 07:09
MCHC 35.8 g/dL (33.0-37.0) 11/03/23 07:09
RDW 13.7 % (11.5-14.5) 11/03/23 07:09
Plt Count 242 10^3/uL (130-400) D 11/03/23 07:09
MPV 9.4 fL (7.4-10.4) 11/03/23 07:09
Abs Immat Gran (auto) 0.1 10^3/uL (0-0.05) H 10/31/23 13:24
Absolute Neuts (auto) 6.6 10^3/uL (1.4-6.5) H 10/31/23 13:24
Absolute Lymphs (auto) 0.8 10^3/uL (1.2-3.4) L 10/31/23 13:24
Absolute Monos (auto) 0.8 10^3/uL (0.1-0.6) H 10/31/23 13:24
Absolute Eos (auto) 0.0 10^3/uL (0-0.7) 10/31/23 13:24
Absolute Basos (auto) 0.0 10^3/uL (0-0.2) 10/31/23 13:24
Immature Gran % 1.6 % (0-0.5) H 10/31/23 13:24
Neutrophils % 79.3 % (42.2-75.2) H 10/31/23 13:24
Lymphocytes % 9.5 % (20.5-51.1) L 10/31/23 13:24
Monocytes % 9.0 % (1.7-9.3) 10/31/23 13:
Eosinophils % 0.2 % (0-6) 10/31/23 13:24
Basophils % 0.4 % (0-2) 10/31/23 13:24
Creatinine 1.2 mg/dL (0.7-1.3) 11/02/23 05:48
Vital Signs
Vital Signs
Temp Pulse Resp BP Pulse Ox
99.0 F 95 16 135/89 100
11/03/23 07:40 11/03/23 07:40 11/03/23 07:40 11/03/23 07:40 11/03/23 07:40
[2023-11-03 08:59] LABS: ALT (SGPT) 30 U/L (0-50); AST (SGOT) 117 U/L (17-59); Albumin 4.1 g/dl (3.5-5.0); Alkaline Phosphatase 102 U/L (38-126); Blood Urea Nitrogen 14 mg/dl (9-20); Calcium 8.1 mg/dl (8.4-10.2); Carbon Dioxide 23 mmol/L (22-30); Chloride 98 mmol/L (98-107); Estimated Creatinine Clearance 71 ml/min; Glucose 91 mg/dl (70-99); Magnesium 1.1 mg/dl (1.6-2.3); Sodium 133 mmol/L (135-145); Total Bilirubin 0.5 mg/dl (0.2-1.3); Total Protein 6.8 g/dl (6.3-8.2); eGFR > 60.00
--- NOTE | 2023-11-03 11:22 | W.PN.UPDATE ---
Update Note
Progress Note Update
s/p Colonoscopy today, no source of GI bleeding identified in colon or terminal ileum. See full report for details.
He has scheduled follow-up with GI on 11/29 @ 11:30 AM with Salome Bardales, added to discharge paperwork. At that time, will discuss if small bowel evaluation is necessary, pending hematology work-up.
GI will sign off, please call with questions.
[2023-11-03 11:33] LABS: APTT 26.2 Sec (23.4-35.0)
--- NOTE | 2023-11-03 11:41 | CM ---
Patient seen bedside, patient remains on medsitter. Patient for colonoscopy today. CM will continue to follow for discharge planning needs.
Plan; home no needs.
[2023-11-03] MEDS: OSCAL 500 + D 1000 MG PO ×2 (11:53→19:47)
[2023-11-03] MEDS: FOLVITE 1 MG PO (11:54)
--- NOTE | 2023-11-03 12:17 | CON.ORS ---
Consultation - Oral Surgery
Subjective
53 y/o male with PMH HTN, HLD, and alcohol use disorder who presented on 10/30 for dental bleeding, anorexia, and progressive lethargy with dyspnea on exertion. He states that he had right sided scaling and root planing done over a week ago now and
afterward had continuous bleeding with many clots that became dislodged and he feels that he was swallowing blood. He states that he is not aware of any oral bleeding for the past 2 days or so since coming to the hospital. This has happened
previously after a dental cleaning in the past.
Past Medical History
Past Medical History: Other (Hypertension, hyperlipidemia, alcohol use disorder, GERD, testicular cancer)
Past Surgical History: Other (Orchiectomy, hand surgery)
Alcohol: Chronic Alcoholic
Medications / Allergies
Allergies
Allergy/AdvReac Type Severity Reaction Status Date / Time
No Known Allergies Allergy Verified 11/02/23 07:28
Active Medications
Generic Name Dose Route Start Last Admin
Trade Name Freq PRN Reason Stop Dose Admin
Acetaminophen 650 mg 10/31/23 22:15
Acetaminophen 325 Mg Tablet PO 11/28/23 22:14
Q4HPRN PRN
mild pain/ fever>100.5F
Amlodipine Besylate 5 mg 10/31/23 22:15 11/02/23 16:52
Amlodipine 5 Mg Tablet PO 11/28/23 22:14 5 mg
QPM LIBBY Administration
Calcium/Vitamin D 1,000 mg 11/02/23 20:00 11/03/23 11:53
Calcium Carbonate 500 Mg/Vitamin D 5 Mcg (200 Units) Tablet PO 11/30/23 19:59 1,000 mg
BID LIBBY Administration
Folic Acid 1 mg 11/01/23 08:00 11/03/23 11:54
Folic Acid 1 Mg Tablet PO 11/29/23 07:59 1 mg
DAILY LIBBY Administration
Folic Acid 1 mg/ Sodium 50.2 mls @ 200.8 mls/hr 10/31/23 22:15
Chloride IV 11/28/23 22:14
DAILYPRN PRN
if NPO
Lorazepam 1 mg 10/31/23 22:15
Lorazepam 1 Mg Tablet PO 11/28/23 22:14
Q2HPRN PRN
MSAS 5-7
Lorazepam 1 mg 10/31/23 22:15
Lorazepam 2 Mg/Ml Vial IV 11/28/23 22:14
Q1HPRN PRN
MSAS 8-11
Lorazepam 2 mg 10/31/23 22:15
Lorazepam 2 Mg/Ml Vial IV 11/28/23 22:14
Q1HPRN PRN
MSAS > 11
Metoprolol Succinate 25 mg 11/01/23 20:00 11/03/23 07:41
Metoprolol 25 Mg Extended Release Tablet PO 11/29/23 19:59 25 mg
BID LIBBY Administration
Pantoprazole Sodium 40 mg 11/02/23 08:00 11/03/23 07:41
Pantoprazole 40 Mg Delayed Release Tablet PO 11/30/23 07:59 40 mg
DAILY LIBBY Administration
Sodium Chloride 0 ml 10/31/23 22:15
Sodium Chloride 0.9% (Preservative Free) 10 Ml Vial IV 11/28/23 22:14
PRN PRN
To dilute IV Ativan
Protocol
Sodium Chloride 0 flush 10/31/23 23:00 11/03/23 07:42
Sodium Chloride 0.9% (Flush) Syringe IV 11/28/23 22:59 1 flush
PER PROTOCOL LIBBY Administration
Thiamine HCl 100 mg 11/03/23 20:00
Thiamine 100 Mg Tablet PO 12/01/23 19:59
BID LIBBY
Review of Systems
Constitutional: Reports No Symptoms
Eyes: Reports No Symptoms
ENT: Reports No Symptoms
Vital Signs
Temp Pulse Resp BP Pulse Ox
36.6 C 95 18 135/90 100
11/03/23 11:40 11/03/23 11:40 11/03/23 11:40 11/03/23 11:40 11/03/23 11:40
Physical Exam
General: Awake, Alert and Oriented x 3
Extra-oral Exam: Other (No extraoral swelling, normal TMJ ROM and JOHN. Small amount of dried blood on lower lip)
Intra-oral Exam: Other (No intraoral swelling or erythema, hemostatic)
Assessment / Plan
53 y/o male with PMH HTN, HLD, and alcohol use disorder admitted for symptomatic anemia in the setting of persistent gingival bleeding after dental cleaning now hemostatic. Agree with hematology can use Amicar rinse as needed for any recurrent oral
bleeding. I discussed with the patient that prior to having any dental procedure with risk of bleeding in the future (extraction, scaling and root planing, etc) he should have CBC checked given history of thrombocytopenia and post-operative bleeding
complications. Continue normal oral hygiene
Data Reviewed
Labs: Labs Reviewed by me
--- NOTE | 2023-11-03 15:44 | W.PN.HOSP.TC ---
Today's Communication/Plan
-
Continue Alcohol withdrawal monitoring
Colonoscopy today
Potassium and magnesium replacement
Hopefully can discharge tomorrow
Assessment / Plan
Assessment / Plan
Physical Exam
General: Comfortable and Conversant
HEENT: Moist mucous membranes
Respiratory: Clear to Auscultation Bilaterally
Cardiac: S1/S2, Regular Rhythm. Tachycardia.
GI: Soft, Non Tender and Other (Mild hepatomegaly). Positive bowel sounds.
Musculoskeletal: No Cyanosis and No Edema
Skin: Warm and Dry
Neuro: Awake, Alert, Oriented x3, Nonfocal/grossly intact

US Abd W Abd Doppler
IMPRESSION:
Mild hepatomegaly with findings compatible with diffuse hepatic steatosis.
No evidence of cholelithiasis, gallbladder wall thickening or biliary tract dilatation.
Unremarkable visualized proximal abdominal aorta. Mid and distal abdominal aorta significantly obscured, most likely by overlying bowel gas.
Unremarkable abdominal Doppler.

Assessment/Plan
Symptomatic Acute Blood Loss Anemia
Melena
Blood in Oropharynx
One small blood clot in the upper third of the esophagus.
Multiple gastric polyps.
Erythematous mucosa in the antrum.
Normal duodenal bulb.
Congested duodenal mucosa.
Hemorrhoids
Non-bleeding internal hemorrhoids.
Congested mucosa in the distal ileum
Diverticulosis
Two small polyps in the descending colon status post removal and clip placement
Hypertrophied Anal papilla(e)
-Transfused 2 units PRBC on 10/31/23 evening
-Iron studies unremarkable
-Vitamin b12 and folic acid levels are okay
-Bleeding contributed from oral bleeding
-GI consulted, recommendations appreciated
-EGD findings above
-Colonoscopy findings as above: no source of bleeding found
-Abdominal ultrasound results are above
-Regular Diet
-Switch PPI to once daily, stop PPI drip
-Consulted ENT for oropharyngeal evaluation for source of bleeding
-Amicar rinse as needed for any recurrent oral bleeding
-Hematology and OMFS also on board given the recurrent nature of this bleeding.
SVT on engine monitor
-Possibly from alcohol withdrawal, anemia, volume depletion, acute kidney injury
-Cardiology consulted, recommendations appreciated
-Continue Metoprolol
Heme-Positive Stool, suspect secondary to Gingival Bleeding following dental procedure
-Consulted GI, recommendations appreciated
-Status post endoscopy and colonoscopy with no active bleeding
Transaminitis
Positive Hep B Core Ab Total
+HBCAb Total noted
-Labs as ordered by GI
Acute Kidney Injury - likely from prerenal hypotension
Hypomagnesemia
Hypokalemia
Hypocalcemia
-Continue IVFs
-Blood transfusion may have contributed to the above electrolyte imbalances
-Replacing with IV magnesium
-Start PO Magnesium supplementation
-Consulted nephrology, recommendations appreciated
-Continue PO calcium
-Supplement potassium
-Hold Losartan
Thrombocytopenia, likely related to alcohol
-Continue to monitor platelet count
Alcohol Use Disorder
-Continue monitoring with MSAS protocol and can use PRN Ativan as needed
-Phenobarb taper can be considered if needed
-Thiamine and Folic Acid
Essential Hypertension
-Unclear if patient is taking medication as prescribed
-Hold losartan in setting of GATO
-Continue amlodipine with hold parameters
-Monitor blood pressure closely
Hyperlipidemia
-Hold statin
GERD
-Continue Protonix
DVT prophylaxis: SCDs
Code Status: Full Code
Anticipated Discharge: 24 - 48 hours
Subjective/Interval History
-
Date of Service: November 03, 2023
Patient was seen and examined. He denied any fever, tremors, vomiting, chest pain or shortness of breath.
Objective Data
-
Labs:
Laboratory Results
11/03/23 11/03/23
07:09 11:12
WBC 9.3
Hgb 9.5 L
Hct 26.5 L
Plt Count 242 D
APTT 26.2
Sodium 133 L
Potassium 3.0 L
Chloride 98
Carbon Dioxide 23
BUN 14
Creatinine 1.0
Glucose 91
Calcium 8.1 L
Total Bilirubin 0.5
AST 117 H
ALT 30
Alkaline Phosphatase 102
Vital Signs:
Vital Signs
Temp Pulse Resp BP Pulse Ox
98.1 F 90 18 114/79 97
11/03/23 15:40 11/03/23 15:40 11/03/23 15:40 11/03/23 15:40 11/03/23 15:40
I&O
11/02/23 11/03/23 11/04/23
06:59 06:59 06:59
Intake Total 700 / 700 960 / 960
Output Total 1950 / 1950 650 / 650
Balance -1250 / -1250 310 / 310
[2023-11-03] MEDS: MAGNESIUM SULFATE 50 IV (16:30)
[2023-11-03] MEDS: NORVASC PO (16:32)
[2023-11-03] MEDS: KCL 40 MEQ PO (16:34)
[2023-11-03 17:00] LABS: HBV Quant by NAAT IU/mL Not Detected; HBV Quant by NAAT Interp Not Detected (Not Detected); HBV Quant by NAAT Log IU/mL Not Detected log IU/mL
[2023-11-03] MEDS: VITAMIN B1 100 MG PO (19:48)
[2023-11-03] MEDS: MAGNESIUM OXIDE 500 MG PO (19:48)
[2023-11-03 21:58] LABS: Hepatitis B Core Ab, IgM Negative (Negative)
[2023-11-03 22:05] LABS: Hepatitis D Antibody Negative (Negative)
[2023-11-04 03:18] VITALS: BP 134/82
[2023-11-04 06:00] VITALS: BMI 20.5
[2023-11-04 07:10] LABS: Hematocrit 23.2 % (39.0-52.0); Hemoglobin 8.3 g/dL (13.0-18.0); Mean Corp Hgb Conc. 35.8 g/dL (33.0-37.0); Mean Corpuscular Hgb 32.3 pg (27.0-31.0); Mean Corpuscular Volume 90.3 fL (80.0-94.0); Platelet Count 210 10^3/uL (130-400); Red Blood Cell Count 2.57 10^6/uL (4.70-6.10); Red Cell Dist. Width 13.6 % (11.5-14.5); White Blood Cell Count 6.1 10^3/uL (4.8-10.8)
[2023-11-04 07:30] VITALS: BP 126/88
[2023-11-04 07:49] LABS: ALT (SGPT) 21 U/L (0-50); AST (SGOT) 73 U/L (17-59); Albumin 3.6 g/dl (3.5-5.0); Alkaline Phosphatase 90 U/L (38-126); Blood Urea Nitrogen 11 mg/dl (9-20); Calcium 7.8 mg/dl (8.4-10.2); Carbon Dioxide 23 mmol/L (22-30); Chloride 101 mmol/L (98-107); Estimated Creatinine Clearance 79 ml/min; Glucose 89 mg/dl (70-99); Magnesium 1.3 mg/dl (1.6-2.3); Sodium 132 mmol/L (135-145); Total Bilirubin 0.5 mg/dl (0.2-1.3); Total Protein 6.1 g/dl (6.3-8.2); eGFR > 60.00
[2023-11-04] MEDS: VITAMIN B1 100 MG PO (08:39)
[2023-11-04] MEDS: MAGNESIUM OXIDE 500 MG PO (08:39)
[2023-11-04] MEDS: OSCAL 500 + D 1000 MG PO (08:39)
[2023-11-04] MEDS: FOLVITE 1 MG PO (08:39)
[2023-11-04] MEDS: PROTONIX 40 MG PO (08:39)
[2023-11-04] MEDS: TOPROL XL 25 MG PO (08:39)
[2023-11-04] MEDS: MAGNESIUM SULFATE 100 IV (08:39)
[2023-11-04] MEDS: KCL 40 MEQ PO (08:47)
[2023-11-04 11:00] VITALS: BP 113/70
--- NOTE | 2023-11-04 11:02 | W.PN.ONC ---
Documented by User: Elvia Quarles MD, Resident 11/04/23 14:36
Today's Communication / Plan
-
Von Willebrand factor pending.
Platelet function testing outpatient.
Impression
Impression
53 Yo M with atypical bleeding s/p minor dental procedure with symptomatic anemia.
Thrombocytopenia - resolved
hepatosplenomegaly
TAI
EtOH abuse
Hypertension
Plan
Plan
Thrombocytopenia resolved.
PT, PTT and INR within normal limits.
Platelet disorders evaluation cannot be done inpatient. Von Willebrand factor pending.
Aminocaproic acid 50mg/kg swish and spit q6 hrs as needed for recurrent bleeding
Serum Iron, vitamin B12, folate, ferritin and transferrin saturation within normal limits.
s/p 2 units PRBC transfusion, Hb -9.5 on 11/02, Hb -8.3 on 11/03
Follow CBCs.
Recommend Oral vitamin C supplementation.
Subjective/Objective
Subjective/Objective
Reports no complaints. Denies weight loss, easy bruising or bleeding, family history of bleeding or clotting disorders and notes some weight loss.
States his oral cavity bleeding stopped on Tuesday.
On examination, No petechiae, purpura, no active clots in oral cavity, S1, S2 normal, no murmurs, rubs and gallops, no palpable hepatosplenomegaly, no cervical axillary, supraclavicular and inguinal lymphadenopathy, Mild tremors in b/l UE.
Vital Signs:
Vital Signs
Temp Pulse Resp BP Pulse Ox
99.3 F 127 18 126/88 100
11/04/23 07:30 11/04/23 07:30 11/04/23 07:30 11/04/23 07:30 11/04/23 07:30
Lab Results:
Laboratory Data
WBC 6.1 10^3/uL (4.8-10.8) 04/26/24 06:27
Hgb 8.3 g/dL (13.0-18.0) L 11/04/23 06:27
Plt Count 210 10^3/uL (130-400) 11/04/23 06:27
PT 14.0 Sec (11.4-14.6) 10/31/23 19:53
INR 1.10 10/31/23 19:53
APTT 26.2 Sec (23.4-35.0) 11/03/23 11:12
eGFR > 60.00 11/04/23 06:27

Documented by User: Salome Virk MD 11/04/23 15:59
Today's Communication / Plan
-
Vit C supplementation, 500mg daily
[2023-11-04 13:43] LABS: Blood Urea Nitrogen 11 mg/dl (9-20); Calcium 7.5 mg/dl (8.4-10.2); Carbon Dioxide 23 mmol/L (22-30); Chloride 101 mmol/L (98-107); Estimated Creatinine Clearance 79 ml/min; Glucose 122 mg/dl (70-99); Magnesium 2.8 mg/dl (1.6-2.3); Potassium 3.5 mmol/L (3.5-5.1); Sodium 130 mmol/L (135-145); eGFR > 60.00
--- NOTE | 2023-11-04 14:42 | W.PN.HOSP.TC ---
Today's Communication/Plan
-
Discharge today
Assessment / Plan
Assessment / Plan
Physical Exam
General: Not in acute distress
HEENT: Moist mucous membranes
Respiratory: Clear to Auscultation Bilaterally
Cardiac: S1/S2, Regular Rhythm. Tachycardia.
GI: Soft, Non Tender and Other (Mild hepatomegaly). Positive bowel sounds.
Musculoskeletal: No Cyanosis and No Edema
Skin: Warm and Dry
Neuro: Awake, Alert, Oriented x3, Nonfocal/grossly intact

US Abd W Abd Doppler
IMPRESSION:
Mild hepatomegaly with findings compatible with diffuse hepatic steatosis.
No evidence of cholelithiasis, gallbladder wall thickening or biliary tract dilatation.
Unremarkable visualized proximal abdominal aorta. Mid and distal abdominal aorta significantly obscured, most likely by overlying bowel gas.
Unremarkable abdominal Doppler.

Assessment/Plan
Symptomatic Acute Blood Loss Anemia
Melena
Blood in Oropharynx
One small blood clot in the upper third of the esophagus.
Multiple gastric polyps.
Erythematous mucosa in the antrum.
Normal duodenal bulb.
Congested duodenal mucosa.
Hemorrhoids
Non-bleeding internal hemorrhoids.
Congested mucosa in the distal ileum
Diverticulosis
Two small polyps in the descending colon status post removal and clip placement
Hypertrophied Anal papilla(e)
-Transfused 2 units PRBC on 10/31/23 evening
-Iron studies unremarkable
-Vitamin b12 and folic acid levels are okay
-Bleeding contributed from oral bleeding
-GI consulted, recommendations appreciated
-EGD findings above
-Colonoscopy findings as above: no source of bleeding found
-Abdominal ultrasound results are above
-Regular Diet
-Protonix 40 mg daily
-Consulted ENT for oropharyngeal evaluation for source of bleeding
-Amicar rinse as needed for any recurrent oral bleeding
-Prior to having any dental procedure with risk of bleeding in the future (extraction, scaling and root planing, etc) patient should have CBC checked given history of thrombocytopenia and post-operative bleeding complications
-Hematology and OMFS also on board given the recurrent nature of this bleeding.
-Hematology (via [place] [facility] on 11/04/23) recommended Vitamin C palpation
SVT on quality assurance monitor final
-Possibly from alcohol withdrawal, anemia, volume depletion, acute kidney injury
-Cardiology consulted, recommendations appreciated
-Continue Metoprolol
Heme-Positive Stool, suspect secondary to Gingival Bleeding following dental procedure
-Consulted GI, recommendations appreciated
-Status post endoscopy and colonoscopy with no active bleeding
Transaminitis
Positive Hep B Core Ab Total
+HBCAb Total noted
-Labs as ordered by GI
Acute Kidney Injury - likely from prerenal hypotension
Hypomagnesemia
Hypokalemia
Hypocalcemia
-Continue IVFs
-Blood transfusion may have contributed to the above electrolyte imbalances
-Replacing with IV magnesium
-Continue PO Magnesium supplementation
-Consulted nephrology, recommendations appreciated
-Continue PO calcium
-Continue potassium supplementation
-Resume Losartan
-Recheck CBC, CMP, Magnesium and Calcium in the next 4 to 5 days
Thrombocytopenia, likely related to alcohol
-Continue to monitor platelet count
Alcohol Use Disorder
-Continue monitoring with MSAS protocol and can use PRN Ativan as needed
-Phenobarb taper can be considered if needed
-Thiamine and Folic Acid
Essential Hypertension
-Unclear if patient is taking medication as prescribed
-Resume Losartan
-Continue amlodipine with hold parameters
-Monitor blood pressure closely
Hyperlipidemia
-Continue statin
GERD
-Continue Protonix
DVT prophylaxis: SCDs
Code Status: Full Code
More than 30 minutes spent in discharge including
Final examination of the patient
Summarizing hospital stay
Instructions for continuing care to all relevant caregivers
Preparation of discharge records, prescriptions, and referral forms
Total time spent (in minutes): 37
Anticipated Discharge: Today
Subjective/Interval History
-
Date of Service: November 04, 2023
Patient was seen and examined. He reported having a normal-colored bowel movement overnight. He has been very anxious with the sitter and all the noise near his room all night.
Objective Data
-
Labs:
Laboratory Results
11/04/23 11/04/23
06:27 12:47
WBC 6.1
Hgb 8.3 L
Hct 23.2 L
Plt Count 210
Sodium 132 L 130 L
Potassium 3.0 L 3.5
Chloride 101 101
Carbon Dioxide 23 23
BUN 11 11
Creatinine 0.9 0.9
Glucose 89 122 H
Calcium 7.8 L 7.5 L
Total Bilirubin 0.5
AST 73 H
ALT 21
Alkaline Phosphatase 90
Vital Signs:
Vital Signs
Temp Pulse Resp BP Pulse Ox
98.1 F 95 22 113/70 98
11/04/23 11:00 11/04/23 11:00 11/04/23 11:00 11/04/23 11:00 11/04/23 11:00
I&O
11/03/23 11/04/23 11/05/23
06:59 06:59 06:59
Intake Total 960 / 960 890 / 890 240 / 240
Output Total 650 / 650 500 / 500
Balance 310 / 310 890 / 890 -260 / -260
[2023-11-04 15:09] VITALS: BP 130/90
--- NOTE | 2023-11-04 16:24 | CM ---
Patient seen, reports no needs to CM. Patient reports his sister will be providing transportation home. CM will continue to follow for discharge planning needs.
Plan; home no needs, sister to provide transportation.
--- NOTE | 2023-11-04 16:56 | W.DS.TRANS ---
DC Summary - [employer]
-
Discharge Instructions:
Discharge Diagnosis/Procedures Symptomatic Acute Blood Loss Anemia
Melena
Blood in Oropharynx
One small blood clot in the upper third of the
esophagus.
Multiple gastric polyps.
Erythematous mucosa in the antrum.
Normal duodenal bulb.
Congested duodenal mucosa.
Hemorrhoids
Non-bleeding internal hemorrhoids.
Congested mucosa in the distal ileum
Diverticulosis
Two small polyps in the descending colon status
post removal and clip placement
Hypertrophied Anal papilla(e)
Supraventricular Tachycardia on telemetry
monitor
Heme-Positive Stool, suspect secondary to
Gingival Bleeding following dental procedure
Transaminitis
Positive Hep B Core Ab Total
Acute Kidney Injury - likely from prerenal
hypotension
Hypomagnesemia
Hypokalemia
Hypocalcemia
Thrombocytopenia, likely related to alcohol
Alcohol Use Disorder
Essential Hypertension
Hyperlipidemia
GERD
Diet Regular
Activity As tolerated
Driving Restrictions No driving
Blood Work Recheck CBC, CMP, Magnesium and Calcium in the
next 4 to 5 days with your primary care provider
's office
Instructions:
Stand-Alone Forms:
Changes to Home Medications: Yes
Discharge Medications:
DC Medications w/original date entered in [employer]
amlodipine 5 mg tablet 5 mg PO QPM Blood Pressure 10/31/23
losartan 100 mg tablet 100 mg PO QPM Blood Pressure 10/31/23
pantoprazole 40 mg tablet,delayed release 40 mg PO QPM Gastrointestinal Issue 10/31/23
simvastatin 40 mg tablet 40 mg PO QPM High Cholesterol 10/31/23
calcium carbonate 500 mg-vitamin D3 5 mcg (200 unit) tablet (Oyster Shell Calcium-Vitamin D3) 2 tab PO BID #120 tabs 11/04/23
folic acid 1 mg tablet 1 mg PO DAILY #30 tabs 11/04/23
magnesium oxide 500 mg PO DAILY #14 tabs 11/04/23
metoprolol succinate 25 mg tablet,extended release 24 hr 25 mg PO BID #60 tabs 11/04/23
potassium chloride 10 mEq capsule,extended release 10 meq PO BID #14 caps 11/04/23
thiamine HCl (vitamin B1) 100 mg tablet 100 mg PO DAILY #30 tabs 11/04/23
Home Medication Changes
Calcium, Folic Acid, Magnesium, Metoprolol Succinate, Potassium and Thiamine are new medications.
Pending Results: Yes
Additional Pending Results:
Pathology results from gastroenterology studies (endoscopy, colonoscopy)
Total time spent discharging patient (in min): 37
--- NOTE | 2023-11-07 10:23 | W.DCSUMMARY ---
Discharge Summary
Discharge Data
Date of Admission: 10/31/23
Date of Discharge: 11/04/23
Total time spent discharging patient (in min): 37
-
Pending Results: Yes
Additional Pending Results:
Pathology results from gastroenterology studies (endoscopy, colonoscopy)
Hospital Course
53 y/o male with a past medical history of hypertension, hyperlipidemia, bleeding in mouth after dental work and alcohol use disorder (with history of driving while intoxicated) who presented for dental bleeding, anorexia, and progressive lethargy
with dyspnea on exertion for about 1 week. He reported that he got a right-sided dental cleaning the week before, and has had continuous bleeding with clots since that time -- he has a history of a similar episode after dental work, without any
clear etiology identified. He admitted to 'constantly spitting out clots' but states that he is probably swallowing some blood as well. He was noted not to be on on any blood-thinning medications. He denies any bleeding since arrival to the
emergency department. Additionally, he was noted to drink alcohol - about 7 drinks of liquor daily and stopped drinking the morning of previous day. Since that time, he had been experiencing shakiness and vomited 1 time yesterday.
Patient was transfused a total of 2 units of blood during the hospitalization. Patient's stool was heme-positive and gastroenterology was consulted. Patient was noted to have supraventricular tachycardia on telemetry monitoring, cardiology was
consulted they mentioned it is expected to improve with blood transfusion, appropriate management of alcohol withdrawal, etc. Nephrology was consulted given patient's acute kidney injury (from previous hemodynamic disturbance) and significant
hypocalcemia and hypomagnesemia, these electrolytes were supplemented with improvement in levels. Upper endoscopy showed, as per animal care attendant's report, one small blood clot in the upper third of the esophagus, multiple gastric polyps,
erythematous mucosa in the antrum and congested duodenal mucosa. Colonoscopy showed, as per animal care attendant's report, hemorrhoids, congested mucosa in the distal ileum, diverticulosis in the sigmoid colon, in the ascending colon and in the cecum,
two small polyps in the descending colon which were removed followed by clip placement and hypertrophied anal papillae.
loss control manager was consulted and recommended Amicar rinse as needed for any recurrent oral bleeding, and that prior to having any dental procedure with risk of bleeding in the future (extraction, scaling and root planing, etc) he
should have complete blood count checked given history of thrombocytopenia and post-operative bleeding complications. Hematology was consulted and suspected that patient's bleeding is related to alcohol abuse, gum disease and possible vitamin D
deficiency.
Discharge Plan
-
Patient Disposition: Home (Routine Discharge)
Discharge Diagnosis/Procedures: Symptomatic Acute Blood Loss Anemia
Melena
Blood in Oropharynx
One small blood clot in the upper third of the esophagus.
Multiple gastric polyps.
Erythematous mucosa in the antrum.
Normal duodenal bulb.
Congested duodenal mucosa.
Hemorrhoids
Non-bleeding internal hemorrhoids.
Congested mucosa in the distal ileum
Diverticulosis
Two small polyps in the descending colon status post removal and clip placement
Hypertrophied Anal papilla(e)
Supraventricular Tachycardia on veterinarian
Heme-Positive Stool, suspect secondary to Gingival Bleeding following dental procedure
Transaminitis
Positive Hep B Core Ab Total
Acute Kidney Injury - likely from prerenal hypotension
Hypomagnesemia
Hypokalemia
Hypocalcemia
Thrombocytopenia, likely related to alcohol
Alcohol Use Disorder
Essential Hypertension
Hyperlipidemia
GERD
Condition: Fair
Diet: Regular
Activity: As tolerated
Driving Restrictions: No driving
Blood Work: Recheck CBC, CMP, Magnesium and Calcium in the next 4 to 5 days with your primary care provider's office
Activity Restrictions/Additional Instructions:
Prior to having any dental procedure with risk of bleeding in the future (extraction, scaling and root planing, etc) you should have 'Complete Blood Count' lab-work checked given your history of thrombocytopenia and post-operative bleeding
complications.
You should take Vitamin C as discussed by the communications marketing intern
Referrals:
Josselin Fung NP [Family Provider] - in 4 days (Need recheck of CBC, CMP, Magnesium, Calcium and Albumin by 11/08/23 the latest -- and may need adjustment in his potassium, magnesium and calcium supplementation.)
Salome Bardales PA-C [Specified Professional Personl] - 11/30/23 11:30 am
Additional Discharge Medication Instructions: Calcium, Folic Acid, Magnesium, Metoprolol Succinate, Potassium and Thiamine are new medications.
Prescriptions:
New
folic acid 1 mg Tablet
1 mg PO DAILY Qty: 30 0RF
magnesium oxide 500 mg magnesium Tablet
500 mg PO DAILY Qty: 14 0RF
calcium carbonate-vitamin D3 [Oyster Shell Calcium-Vit D3] 500 mg-5 mcg (200 unit) Tablet
2 tab PO BID Qty: 120 1RF
metoprolol succinate 25 mg Tablet Extended Release 24 Hr
25 mg PO BID Qty: 60 1RF
thiamine HCl (vitamin B1) 100 mg Tablet
100 mg PO DAILY Qty: 30 0RF
potassium chloride 10 mEq capsule, extended release
10 meq PO BID Qty: 14 0RF
Continued
amlodipine 5 mg Tablet
5 mg PO QPM
Patient Comments:
10/31/2023, last filled in February 2023 for 30-day supply per pharmacy.
simvastatin 40 mg Tablet
40 mg PO QPM
Patient Comments:
10/31/2023, last filled in March 2023 for 30-day supply per pharmacy.
pantoprazole 40 mg Tablet,Delayed Release (Dr/Ec)
40 mg PO QPM
Patient Comments:
10/31/2023, last filled in March 2023 for 30-day supply per pharmacy.
losartan 100 mg Tablet
100 mg PO QPM
Patient Comments:
10/31/2023, last filled in April 2023 for a 30-day supply per pharmacy.
Discharge Orders:
Discharge Patient (As Directed); Ordered 11/04/23
Ordered By: Abran Alison
Discharge Date and Time
Discharge Date/Time: 11/04/23 17:34
Print Language: [id number]
[2023-11-10 20:11] LABS: Factor VIII Activity 300 % (56-191); Ristocetin Cofactor Activity 231 % (51-215); Von Willebrands Factor Antigen 301 % (52-214)
== END 2023-11-04 17:34 | disposition home or self-care (01) | DRG 378 ==
LOC: 4 WEST ACU 18:47
PROVIDERS: Nurse Practitioner Family; Physician Assistant Medical; Student in an Organized Health Care Education/Training Program; ADMITTING PHYSICIAN Hospitalist; CONSULT PHYSICIAN Dentist Oral and Maxillofacial Surgery; CONSULT PHYSICIAN Internal Medicine Cardiovascular Disease; CONSULT PHYSICIAN Specialist; EMERGENCY PHYSICIAN Emergency Medicine; FAMILY PHYSICIAN Nurse Practitioner Adult Health; OTHER PHYSICIAN Internal Medicine; OTHER PHYSICIAN Internal Medicine Hematology & Oncology
PROC: 30233N1 Transfusion of Nonautologous Red Blood Cells into Peripheral Vein, Percutaneous Approach (ICD-10-PCS; 2023-10-31)
PROC: 0DB98ZX Excision of Duodenum, Via Natural or Artificial Opening Endoscopic, Diagnostic (ICD-10-PCS; 2023-11-01)
PROC: 0DB78ZX Excision of Stomach, Pylorus, Via Natural or Artificial Opening Endoscopic, Diagnostic (ICD-10-PCS; 2023-11-01)
PROC: 0DBM8ZZ Excision of Descending Colon, Via Natural or Artificial Opening Endoscopic (ICD-10-PCS; 2023-11-03)
PROC: 0DBB8ZX Excision of Ileum, Via Natural or Artificial Opening Endoscopic, Diagnostic (ICD-10-PCS; 2023-11-03)
DX: K92.1 Melena (principal); D62 Acute posthemorrhagic anemia; F10.239 Alcohol dependence with withdrawal, unspecified; N17.9 Acute kidney failure, unspecified; I47.10 Supraventricular tachycardia, unspecified; I42.6 Alcoholic cardiomyopathy; E87.20 Acidosis, unspecified; E87.1 Hypo-osmolality and hyponatremia; D68.00 Von Willebrand disease, unspecified; D69.59 Other secondary thrombocytopenia; E83.42 Hypomagnesemia; E83.51 Hypocalcemia; I95.9 Hypotension, unspecified; R16.1 Splenomegaly, not elsewhere classified; K70.10 Alcoholic hepatitis without ascites; K70.30 Alcoholic cirrhosis of liver without ascites; E87.6 Hypokalemia; K22.89 Other specified disease of esophagus; K31.7 Polyp of stomach and duodenum; K21.9 Gastro-esophageal reflux disease without esophagitis; K31.89 Other diseases of stomach and duodenum; K64.8 Other hemorrhoids; K63.89 Other specified diseases of intestine; D12.4 Benign neoplasm of descending colon; K57.30 Diverticulosis of large intestine without perforation or abscess without bleeding; E78.00 Pure hypercholesterolemia, unspecified; E86.9 Volume depletion, unspecified; I10 Essential (primary) hypertension; K44.9 Diaphragmatic hernia without obstruction or gangrene; Z85.47 Personal history of malignant neoplasm of testis; Z90.79 Acquired absence of other genital organ(s); Z91.148 Patient's other noncompliance with medication regimen for other reason
CPT/HCPCS: 88305; 76700; 80048; 80053; 80076; 80143; 80179; 80306; 80307; 81003; 81099; 82390; 82570; 82607; 82728; 82746; 83540; 83550; 83690; 83735; 83880; 84100; 84300; 84484; 85014; 85018; 85025; 85027; 85240; 85245; 85246; 85247; 85610; 85730; 86692; 86704; 86705; 86706; 86708; 86709; 86803; 86850; 86900; 86901; 86920; 87340; 87517; 88342; 93005; 93306; 93975; 96361; 96374; 96375; 99285; P9016